=== PATIENT | male | born 1930 | race Caucasian/White ===

== ENCOUNTER 2017-07-21 14:21 | Inpatient (IN) | payer OTHER ==
[~2017-07-21] VITALS: Ht 190.5 cm; Wt 75.3 kg
[2017-07-21 14:25] VITALS: Ht 190.5 cm; Wt 75.3 kg
[2017-07-21 16:16] LABS: BASOPHIL % 0.1 % (0-2); PLATELET COUNT 193 x10^3mcL (130-400)
[2017-07-21 16:23] LABS: RED CELL DISTRIBUTION WIDTH 16.2 % (11.5-14.5)
[2017-07-21 16:29] LABS: CALCIUM 8.8 mg/dL (8.5-10.1); CHLORIDE SERUM 100 mmol/L (98-107); CREATININE SERUM 1.1 mg/dL (0.7-1.3); GLUCOSE SERUM 202 mg/dL (74-106); POTASSIUM SERUM 4.9 mmol/L (3.5-5.1); SODIUM SERUM 138 mmol/L (136-145)
[2017-07-21] MEDS ORDERED: PREMIERPRO RX5 MG/GM OP (16:31)
[2017-07-21] MEDS ORDERED: LEXAPRO20 MG PO (16:32)
[2017-07-21] MEDS ORDERED: FERROUS SULFAT325 M2 PO (16:32)
[2017-07-21] MEDS ORDERED: LEVEMIR100 U/M1 SC (16:32)
[2017-07-21] MEDS ORDERED: HUMALOG100 U/ML SC (16:32)
[2017-07-21] MEDS ORDERED: POLYETHYLENE GL1 PO1 PO (16:33)
[2017-07-21] MEDS ORDERED: MINOCYCLINE HYD50 MG PO (16:33)
[2017-07-21] MEDS ORDERED: SYN2 PO (16:33)
[2017-07-21] MEDS ORDERED: SPIRIVA18 MC1 INH (16:33)
[2017-07-21] MEDS ORDERED: LOSARTAN POTASS50 M1 PO (16:33)
[2017-07-21] MEDS ORDERED: PRILOSEC OTC20 M1 PO (16:33)
[2017-07-21 16:34] LABS: ALKALINE PHOSPHATASE 91 U/L (46-116); ALT/SGPT 24 U/L (16-63); AST/SGOT 17 U/L (15-37); BILIRUBIN TOTAL 0.3 mg/dL (0.20-1.00); TOTAL PROTEIN, SERUM 6.4 g/dL (6.4-8.2)
[2017-07-21] MEDS ORDERED: GLYCOTROL CAPS1 EACH PO (16:34)
[2017-07-21] MEDS ORDERED: TOVIAZ4 M1 PO (16:34)
[2017-07-21] MEDS ORDERED: TRAZODONE50 M1 PO (16:34)
[2017-07-21] MEDS ORDERED: COUMADIN5 MG PO (16:34)
[2017-07-21] MEDS ORDERED: AMOXICILLIN500 M1 PO (16:35)
[2017-07-21] MEDS ORDERED: ALBUTEROL SULFAT3 ML NEB (16:35)
[2017-07-21] MEDS ORDERED: FLOVENT DI100 MCG/A1 INH (16:35)
[2017-07-21] MEDS ORDERED: XIIDRA1 EACH OP (16:35)
[2017-07-21] MEDS ORDERED: PROAIR HFA8.5 GM IH (16:36)
[2017-07-21] MEDS ORDERED: [UNRECOGNIZED DRUG - CODE] PO (16:36)
[2017-07-21] MEDS ORDERED: MAPAP325 MG PO (16:36)
[2017-07-21] MEDS ORDERED: CLARITIN10 MG PO (16:36)
[2017-07-21] MEDS ORDERED: ASPIRIN325 MG PO (16:37)
[2017-07-21] MEDS ORDERED: [UNRECOGNIZED DRUG - OTHER] OU (16:37)
[2017-07-21] MEDS ORDERED: LIPI20 PO (16:37)
[2017-07-21] MEDS ORDERED: ACYCLOVIR800 MG PO (16:37)
[2017-07-21 16:38] LABS: ALBUMIN 2.9 g/dL (3.4-5.0)
[2017-07-21] MEDS ORDERED: COREG6.25 M1 PO (16:38)
[2017-07-21] MEDS ORDERED: PHOSLO667 MG PO (16:38)
[2017-07-21] MEDS ORDERED: COLACE100 MG PO (16:38)
[2017-07-21] MEDS ORDERED: CICLOPIROX6.6 ML TOP (16:38)
[2017-07-21] MEDS ORDERED: BREO ELLIPTA1 PO1 IH (16:38)
[2017-07-21 18:06] LABS: microscopic required? YES; urine erythrocyte NEGATIVE (NEGATIVE)
[2017-07-21 18:51] VITALS: BP 174/75
[2017-07-21 20:06] LABS: MAGNESIUM 1.6 mg/dL (1.8-2.4); PHOSPHOROUS 3.2 mg/dL (2.5-4.9)
[2017-07-21 20:08] LABS: CHOLESTEROL/HDL RATIO 2.7
[2017-07-21 20:10] LABS: T3 TOTAL 0.77 ng/mL
[2017-07-21 20:21] LABS: FREE T4 1.26 ng/dL (0.76-1.46); FREE THYROXINE INDEX 2.5 ug/dL (1.4-4.5); T4(THYROXINE) 6.3 ug/dL (4.7-13.3)
[2017-07-21 21:59] VITALS: BP 141/69
[2017-07-22 06:12] VITALS: BP 152/71
[2017-07-22 06:20] LABS: PLATELET COUNT 188 x10^3mcL (130-400)
[2017-07-22 06:39] LABS: BASOPHIL % 0 % (0-2); RED CELL DISTRIBUTION WIDTH 15.7 % (11.5-14.5)
[2017-07-22 07:38] LABS: CALCIUM 9.1 mg/dL (8.5-10.1); CARBON DIOXIDE 28.1 mmol/L (21-32); CHLORIDE SERUM 100 mmol/L (98-107); GLUCOSE SERUM 190 mg/dL (74-106); PHOSPHOROUS 3.1 mg/dL (2.5-4.9); POTASSIUM SERUM 4.9 mmol/L (3.5-5.1); SODIUM SERUM 133 mmol/L (136-145)
[2017-07-22 11:12] VITALS: BP 122/47
[2017-07-22 15:02] VITALS: BP 159/73
[2017-07-22 18:24] VITALS: BP 150/68
[2017-07-22 21:23] VITALS: BP 144/66
[2017-07-23 05:07] VITALS: BP 107/45
[2017-07-23 06:41] LABS: PLATELET COUNT 196 x10^3mcL (130-400)
[2017-07-23 06:45] LABS: CALCIUM 9.1 mg/dL (8.5-10.1); CARBON DIOXIDE 30.6 mmol/L (21-32); CHLORIDE SERUM 100 mmol/L (98-107); CREATININE SERUM 1.1 mg/dL (0.7-1.3); GLUCOSE SERUM 85 mg/dL (74-106); POTASSIUM SERUM 4.5 mmol/L (3.5-5.1); SODIUM SERUM 138 mmol/L (136-145)
[2017-07-23 07:24] LABS: BASOPHIL % 0 % (0-2); RED CELL DISTRIBUTION WIDTH 15.8 % (11.5-14.5)
[2017-07-23 08:44] VITALS: BP 110/53
[2017-07-23 12:55] VITALS: BP 143/69
[2017-07-23 17:10] VITALS: BP 145/68
[2017-07-23 21:10] VITALS: BP 148/65
[2017-07-24 04:57] VITALS: BP 114/49
[2017-07-24 06:43] LABS: PLATELET COUNT 208 x10^3mcL (130-400)
[2017-07-24 06:48] LABS: BASOPHIL % 0 % (0-2); RED CELL DISTRIBUTION WIDTH 15.4 % (11.5-14.5)
[2017-07-24 07:00] LABS: CALCIUM 8.8 mg/dL (8.5-10.1); CARBON DIOXIDE 27.3 mmol/L (21-32); CHLORIDE SERUM 101 mmol/L (98-107); CREATININE SERUM 1.1 mg/dL (0.7-1.3); GLUCOSE SERUM 165 mg/dL (74-106); PHOSPHOROUS 3.1 mg/dL (2.5-4.9); POTASSIUM SERUM 4.2 mmol/L (3.5-5.1); SODIUM SERUM 136 mmol/L (136-145)
[2017-07-24 08:53] VITALS: BP 170/83
[2017-07-24 13:49] VITALS: BP 164/84
[2017-07-24] MEDS ORDERED: LOSARTAN POTASS50 M1 PO (14:50)
[2017-07-24] MEDS ORDERED: COREG6.25 M1 PO (14:50)
[2017-07-24] MEDS ORDERED: LEVEMIR100 U/M1 SC ×2 (14:52→15:16)
[2017-07-24] MEDS ORDERED: MEDDP PO (15:05)
[2017-07-24] MEDS ORDERED: IPRATROPIUM BROM3 M2 HHN (15:08)
[2017-07-24] MEDS ORDERED: HUMULIN R100 U/1 M1 SC (15:14)
[2017-07-24 16:18] VITALS: BP 159/66
== END 2017-07-24 16:52 | DRG 205 ==
LOC: ED 14:21 → DU 17:40
PROVIDERS: Emergency Medicine; Family Medicine; Family Medicine Sports Medicine
DX: M94.0 Chondrocostal junction syndrome [Tietze] (principal); N17.0 Acute kidney failure with tubular necrosis; E44.0 Moderate protein-calorie malnutrition; E87.1 Hypo-osmolality and hyponatremia; J44.1 Chronic obstructive pulmonary disease with (acute) exacerbation; B02.30 Zoster ocular disease, unspecified; K21.9 Gastro-esophageal reflux disease without esophagitis; E11.65 Type 2 diabetes mellitus with hyperglycemia; E11.51 Type 2 diabetes mellitus with diabetic peripheral angiopathy without gangrene; G47.00 Insomnia, unspecified; H02.106 Unspecified ectropion of left eye, unspecified eyelid; D63.8 Anemia in other chronic diseases classified elsewhere; E03.9 Hypothyroidism, unspecified; F32.9 Major depressive disorder, single episode, unspecified; Z68.22 Body mass index [BMI] 22.0-22.9, adult; Z95.1 Presence of aortocoronary bypass graft; Z95.0 Presence of cardiac pacemaker; Z95.2 Presence of prosthetic heart valve; Z87.891 Personal history of nicotine dependence; Z79.4 Long term (current) use of insulin; Z79.01 Long term (current) use of anticoagulants; Z66 Do not resuscitate
CPT/HCPCS: 82962; 83880; 84439; 97110-GP; 97116-GP; 97530-GP; J1815; J1940; J2920; J2930; J3475; J7030; J7620; Q0092

== ENCOUNTER 2018-09-05 10:06 | Inpatient (IN) | payer OTHER ==
[~2018-09-05] VITALS: Ht 182.9 cm; Wt 81.6 kg
[~2018-09-05 10:06] MED LIST: ACYCLOVIR800 MG PO; ALBUTEROL SULFAT3 ML NEB; AMOXICILLIN500 M1 PO; ASPIRIN325 MG PO; BREO ELLIPTA1 PO1 IH; CICLOPIROX6.6 ML TOP; CLARITIN10 MG PO; COLACE100 MG PO; COREG6.25 M1 PO; COUMADIN5 MG PO; FERROUS SULFAT325 M2 PO; FLOVENT DI100 MCG/A1 INH; GLYCOTROL CAPS1 EACH PO; HUMALOG100 U/ML SC; HUMULIN R100 U/1 M1 SC; IPRATROPIUM BROM3 M2 HHN; LEVEMIR100 U/M1 SC; LEXAPRO20 MG PO; LIPI20 PO; LOSARTAN POTASS50 M1 PO; MAPAP325 MG PO; MEDDP PO; MINOCYCLINE HYD50 MG PO; PHOSLO667 MG PO; POLYETHYLENE GL1 PO1 PO; PREMIERPRO RX5 MG/GM OP; PRILOSEC OTC20 M1 PO; PROAIR HFA8.5 GM IH; SPIRIVA18 MC1 INH; SYN2 PO; TOVIAZ4 M1 PO; TRAZODONE50 M1 PO; XIIDRA1 EACH OP; [UNRECOGNIZED DRUG - CODE] PO; [UNRECOGNIZED DRUG - OTHER] OU
[2018-09-05 10:10] VITALS: Ht 182.9 cm; Wt 81.6 kg
[2018-09-05] MEDS ORDERED: TOVIAZ4 M1 PO ×2 (10:33→10:45)
[2018-09-05] MEDS ORDERED: COUMADIN3 MG PO (10:34)
[2018-09-05] MEDS ORDERED: NORCO1 TA2 (10:34)
[2018-09-05] MEDS ORDERED: ACYCLOVIR400 MG PO (10:35)
[2018-09-05] MEDS ORDERED: ADV250/50 INH (10:35)
[2018-09-05 10:39] LABS: microscopic required? NO
[2018-09-05] MEDS ORDERED: ALBUTEROL SULFAT3 ML NEB (10:40)
[2018-09-05] MEDS ORDERED: LIPI20 PO (10:41)
[2018-09-05] MEDS ORDERED: CARVEDILOL3.125 M1 PO (10:42)
[2018-09-05] MEDS ORDERED: LASIX40 MG PO (10:43)
[2018-09-05] MEDS ORDERED: ZOL100 PO (10:44)
[2018-09-05] MEDS ORDERED: SPIRIVA18 MC1 INH (10:45)
[2018-09-05] MEDS ORDERED: TRAZODONE50 M1 PO (10:45)
[2018-09-05 10:59] LABS: ALKALINE PHOSPHATASE 108 U/L (46-116); ALT/SGPT 25 U/L (16-63); AST/SGOT 29 U/L (15-37); BILIRUBIN TOTAL 0.62 mg/dL (0.20-1.00); CALCIUM 9.3 mg/dL (8.5-10.1); CHLORIDE SERUM 97 mmol/L (98-107); CREATININE SERUM 1.6 mg/dL (0.7-1.3); GLUCOSE SERUM 105 mg/dL (74-106); POTASSIUM SERUM 3.9 mmol/L (3.5-5.1); SODIUM SERUM 136 mmol/L (136-145); TOTAL PROTEIN, SERUM 7.5 g/dL (6.4-8.2)
[2018-09-05 11:11] LABS: ALBUMIN 2.3 g/dL (3.4-5.0)
[2018-09-05 11:25] LABS: urine erythrocyte NEGATIVE (NEGATIVE)
[2018-09-05 11:44] LABS: PLATELET COUNT 288 x10^3mcL (130-400); RED CELL DISTRIBUTION WIDTH 14.5 % (11.5-14.5)
[2018-09-05 12:08] LABS: BAND NEUTROPHIL 4 % (0-10); BASOPHIL 0 % (0-2); MONOCYTE 9 % (0-7); SEGMENTED NEUTROPHILS 87 % (37-75)
[2018-09-05 12:09] LABS: PLATELET MORPHOLOGY PLATELETS NORMAL; rbc morphology (normal/abnorm) ABNORMAL (NORMAL)
[2018-09-05 13:25] LABS: MAGNESIUM 1.9 mg/dL (1.8-2.4); PHOSPHOROUS 4.6 mg/dL (2.5-4.9)
[2018-09-05 13:26] LABS: CHOLESTEROL/HDL RATIO 2.8
[2018-09-05 13:31] LABS: FREE T4 1.14 ng/dL (0.76-1.46)
[2018-09-05 13:32] LABS: FREE THYROXINE INDEX 1.7 ug/dL (1.4-4.5); T4(THYROXINE) 4.1 ug/dL (4.7-13.3)
[2018-09-05 13:53] LABS: T3 TOTAL 0.29 ng/mL
[2018-09-05 15:11] VITALS: BP 131/49
[2018-09-05 16:29] VITALS: BP 112/46; BP 131/49
[2018-09-05 21:06] VITALS: BP 108/46
[2018-09-06 05:59] VITALS: BP 147/52
[2018-09-06 06:30] LABS: BASOPHIL % 0.1 % (0-2); PLATELET COUNT 238 x10^3mcL (130-400)
[2018-09-06 06:33] LABS: CARBON DIOXIDE 32.9 mmol/L (21-32); CHLORIDE SERUM 100 mmol/L (98-107); CREATININE SERUM 1.5 mg/dL (0.7-1.3); GLUCOSE SERUM 172 mg/dL (74-106); POTASSIUM SERUM 4.7 mmol/L (3.5-5.1); SODIUM SERUM 139 mmol/L (136-145)
[2018-09-06 06:43] LABS: RED CELL DISTRIBUTION WIDTH 14.8 % (11.5-14.5)
[2018-09-06 10:08] VITALS: BP 120/48
[2018-09-06 13:04] VITALS: BP 129/63
[2018-09-06 16:33] VITALS: BP 103/48
[2018-09-06 20:51] VITALS: BP 126/58
[2018-09-07 05:36] VITALS: BP 125/53
[2018-09-07 06:16] LABS: PLATELET COUNT 242 x10^3mcL (130-400)
[2018-09-07 06:18] LABS: CALCIUM 9.1 mg/dL (8.5-10.1); CARBON DIOXIDE 32.2 mmol/L (21-32); CHLORIDE SERUM 102 mmol/L (98-107); CREATININE SERUM 1.4 mg/dL (0.7-1.3); GLUCOSE SERUM 183 mg/dL (74-106); POTASSIUM SERUM 4.5 mmol/L (3.5-5.1); SODIUM SERUM 140 mmol/L (136-145)
[2018-09-07 06:26] LABS: BASOPHIL % 0 % (0-2); RED CELL DISTRIBUTION WIDTH 14.6 % (11.5-14.5)
[2018-09-07 09:35] VITALS: BP 139/58
[2018-09-07 12:26] VITALS: BP 101/74
[2018-09-07 17:24] VITALS: BP 136/65
[2018-09-07 21:04] VITALS: BP 131/55
[2018-09-08 05:45] VITALS: BP 136/61
[2018-09-08 07:21] LABS: BASOPHIL % 0.3 % (0-2); PLATELET COUNT 254 x10^3mcL (130-400)
[2018-09-08 07:28] LABS: CALCIUM 8.7 mg/dL (8.5-10.1); CARBON DIOXIDE 30.3 mmol/L (21-32); CHLORIDE SERUM 102 mmol/L (98-107); CREATININE SERUM 1.2 mg/dL (0.7-1.3); GLUCOSE SERUM 151 mg/dL (74-106); POTASSIUM SERUM 3.8 mmol/L (3.5-5.1); SODIUM SERUM 140 mmol/L (136-145)
[2018-09-08 07:50] LABS: RED CELL DISTRIBUTION WIDTH 15.1 % (11.5-14.5)
[2018-09-08 09:46] VITALS: BP 124/57
[2018-09-08 12:23] VITALS: BP 110/46
[2018-09-08 15:58] VITALS: BP 110/46
[2018-09-08 17:21] VITALS: BP 118/53
[2018-09-08 20:45] VITALS: BP 138/65
[2018-09-09 05:49] VITALS: BP 120/54
[2018-09-09 06:52] LABS: CALCIUM 8.6 mg/dL (8.5-10.1); CARBON DIOXIDE 29.3 mmol/L (21-32); CHLORIDE SERUM 100 mmol/L (98-107); CREATININE SERUM 1.4 mg/dL (0.7-1.3); GLUCOSE SERUM 191 mg/dL (74-106); POTASSIUM SERUM 3.7 mmol/L (3.5-5.1); SODIUM SERUM 137 mmol/L (136-145)
[2018-09-09 07:04] LABS: PLATELET COUNT 232 x10^3mcL (130-400); RED CELL DISTRIBUTION WIDTH 14.3 % (11.5-14.5)
[2018-09-09 07:16] VITALS: BP 121/57
[2018-09-09 07:23] LABS: BASOPHIL % 0 % (0-2)
[2018-09-09 12:17] VITALS: BP 127/58
[2018-09-09 16:07] VITALS: BP 124/55
[2018-09-09 20:13] VITALS: BP 137/53
[2018-09-10 05:59] VITALS: BP 106/55
[2018-09-10 06:33] LABS: BASOPHIL % 0.1 % (0-2); PLATELET COUNT 195 x10^3mcL (130-400)
[2018-09-10 06:41] LABS: CARBON DIOXIDE 26.9 mmol/L (21-32); CHLORIDE SERUM 101 mmol/L (98-107); CREATININE SERUM 1.3 mg/dL (0.7-1.3); GLUCOSE SERUM 156 mg/dL (74-106); POTASSIUM SERUM 3.2 mmol/L (3.5-5.1); SODIUM SERUM 138 mmol/L (136-145)
[2018-09-10 06:58] VITALS: BP 126/60
[2018-09-10 07:26] LABS: RED CELL DISTRIBUTION WIDTH 14.9 % (11.5-14.5)
[2018-09-10 10:45] VITALS: BP 128/61
[2018-09-10 16:13] VITALS: BP 128/57
[2018-09-10 21:01] VITALS: BP 132/72
[2018-09-11 05:41] VITALS: BP 142/64
[2018-09-11 06:37] LABS: PLATELET COUNT 232 x10^3mcL (130-400); RED CELL DISTRIBUTION WIDTH 14.2 % (11.5-14.5)
[2018-09-11 07:10] VITALS: BP 131/57
[2018-09-11 07:25] LABS: CALCIUM 8.9 mg/dL (8.5-10.1); CARBON DIOXIDE 28.4 mmol/L (21-32); CHLORIDE SERUM 102 mmol/L (98-107); CREATININE SERUM 1.4 mg/dL (0.7-1.3); GLUCOSE SERUM 129 mg/dL (74-106); POTASSIUM SERUM 3.9 mmol/L (3.5-5.1); SODIUM SERUM 140 mmol/L (136-145)
[2018-09-11 11:58] VITALS: BP 139/61
[2018-09-11 12:37] LABS: BAND NEUTROPHIL 3 % (0-10); MONOCYTE 5 % (0-7); SEGMENTED NEUTROPHILS 86 % (37-75); rbc morphology (normal/abnorm) NORMAL (NORMAL)
[2018-09-11 12:38] LABS: PLATELET MORPHOLOGY PLATELETS NORMAL
[2018-09-11 15:44] VITALS: BP 111/55
[2018-09-11 21:04] VITALS: BP 128/55
[2018-09-12 05:57] VITALS: BP 139/64
[2018-09-12 06:47] LABS: PLATELET COUNT 230 x10^3mcL (130-400)
[2018-09-12 06:53] LABS: CALCIUM 8.6 mg/dL (8.5-10.1); CHLORIDE SERUM 103 mmol/L (98-107); CREATININE SERUM 1.5 mg/dL (0.7-1.3); GLUCOSE SERUM 144 mg/dL (74-106); POTASSIUM SERUM 3.1 mmol/L (3.5-5.1); SODIUM SERUM 140 mmol/L (136-145)
[2018-09-12 07:02] LABS: BASOPHIL % 0 % (0-2); RED CELL DISTRIBUTION WIDTH 14.8 % (11.5-14.5)
[2018-09-12 09:01] VITALS: BP 139/58
[2018-09-12 12:36] VITALS: BP 125/54
[2018-09-12 17:22] VITALS: BP 120/60
[2018-09-12 20:19] VITALS: BP 129/60
[2018-09-13 05:13] VITALS: BP 111/46
[2018-09-13 06:37] LABS: BASOPHIL % 0.1 % (0-2); PLATELET COUNT 215 x10^3mcL (130-400); RED CELL DISTRIBUTION WIDTH 14.4 % (11.5-14.5)
[2018-09-13 06:44] LABS: CALCIUM 8.5 mg/dL (8.5-10.1); CHLORIDE SERUM 107 mmol/L (98-107); CREATININE SERUM 1.7 mg/dL (0.7-1.3); GLUCOSE SERUM 113 mg/dL (74-106); MAGNESIUM 1.1 mg/dL (1.8-2.4); SODIUM SERUM 143 mmol/L (136-145)
[2018-09-13 06:49] LABS: POTASSIUM SERUM 2.9 mmol/L (3.5-5.1)
[2018-09-13 09:00] VITALS: BP 146/49
[2018-09-13 10:27] VITALS: BP 146/49
[2018-09-13] MEDS ORDERED: MERREM IV1 GM INJ (10:37)
[2018-09-13 13:23] VITALS: BP 151/64
[2018-09-13 17:16] VITALS: BP 138/67
[2018-09-13 17:29] VITALS: BP 138/67
== END 2018-09-13 19:14 | DRG 177 ==
LOC: ED 10:06 → DU 12:25
PROVIDERS: Emergency Medicine; Family Medicine; Internal Medicine; ADMIT Internal Medicine
DX: J69.0 Pneumonitis due to inhalation of food and vomit (principal); J96.01 Acute respiratory failure with hypoxia; N17.0 Acute kidney failure with tubular necrosis; E44.0 Moderate protein-calorie malnutrition; B02.30 Zoster ocular disease, unspecified; J44.1 Chronic obstructive pulmonary disease with (acute) exacerbation; E11.42 Type 2 diabetes mellitus with diabetic polyneuropathy; L85.3 Xerosis cutis; E86.0 Dehydration; I12.9 Hypertensive chronic kidney disease with stage 1 through stage 4 chronic kidney disease, or unspecified chronic kidney disease; E11.22 Type 2 diabetes mellitus with diabetic chronic kidney disease; E11.65 Type 2 diabetes mellitus with hyperglycemia; N18.9 Chronic kidney disease, unspecified; E03.9 Hypothyroidism, unspecified; H02.104 Unspecified ectropion of left upper eyelid; F32.9 Major depressive disorder, single episode, unspecified; Z91.81 History of falling; Z95.0 Presence of cardiac pacemaker; Z86.11 Personal history of tuberculosis; Z79.4 Long term (current) use of insulin; Z95.2 Presence of prosthetic heart valve; Z68.24 Body mass index [BMI] 24.0-24.9, adult; Z95.1 Presence of aortocoronary bypass graft; Z87.891 Personal history of nicotine dependence
CPT/HCPCS: 36600; 82962; 83880; 84439; 92526-GN; 92610; 94150; 97110-GP; 97116-GP; 97530-GP; J1815; J1956; J2543; J3370; J3480; J7030; J7060; J7613; J7620; J7644; Q0092

== ENCOUNTER 2018-09-29 13:50 | Inpatient (IN) | payer OTHER ==
[~2018-09-29] VITALS: Ht 182.9 cm; Wt 66.2 kg
[~2018-09-29 13:50] MED LIST changes: +ACYCLOVIR400 MG PO; +ADV250/50 INH; +CARVEDILOL3.125 M1 PO; +COUMADIN3 MG PO; +LASIX40 MG PO; +MERREM IV1 GM INJ; +NORCO1 TA2; +ZOL100 PO
[2018-09-29 13:59] VITALS: Ht 182.9 cm; Wt 66.2 kg
--- NOTE | 2018-09-29 14:10 | NUR ---
PT BIB [facility] FOR SOB WHILE RESID[facility] DUE TO PNA. PT WAS RECENTLY DISCHARGED [place] INPATIENT STATUS [place] [facility] [place] HAS PRODUCTIVE CONGESTED COUGH NO RESP DISTRESS WITH HX OF COPD. PT ARRIVED ON HIGH FLOW O2 AT 15L, PT PLACED ON FULL CM PACED RHYTHM GOWNED IN POSITION OF COMFORT SITTING UPRIGHT. IV ESTABLISHED TO RAC 20G SALINE LOCK PATENT FLUSHED WITH NO PROBLEM EKG IN PROGRESS.
--- NOTE | 2018-09-29 14:40 | NUR ---
MSE COMPLETED BY DR STEELE
--- NOTE | 2018-09-29 14:46 | NUR ---
PTS O2 SET TO 4L VIA NC AT THIS TIME PER DR STEELE'S ORDERS. PT IN NO DISTRESS DAUGHTER AT BEDSIDE VSS AT THIS TIME. IVF INFUSION STARTED INFLUENZA A&B COLLECTED AND SENT TO LAB
--- NOTE | 2018-09-29 15:22 | NUR ---
SMALL SIP OF NECTAR THICK WATER PROVIDED FOR PT OK PER DR STEELE. PT SWALLOWED WITH NO PROBLEM.
[2018-09-29 15:30] LABS: BASOPHIL % 0.1 % (0-2); PLATELET COUNT 229 x10^3mcL (130-400)
[2018-09-29 15:31] LABS: RED CELL DISTRIBUTION WIDTH 15.8 % (11.5-14.5)
[2018-09-29 15:46] LABS: ALKALINE PHOSPHATASE 116 U/L (46-116); ALT/SGPT 21 U/L (16-63); AST/SGOT 25 U/L (15-37); BILIRUBIN TOTAL 0.28 mg/dL (0.20-1.00); CALCIUM 8.6 mg/dL (8.5-10.1); CHLORIDE SERUM 100 mmol/L (98-107); CREATININE SERUM 1.4 mg/dL (0.7-1.3); POTASSIUM SERUM 3.2 mmol/L (3.5-5.1); SODIUM SERUM 138 mmol/L (136-145); TOTAL PROTEIN, SERUM 6.8 g/dL (6.4-8.2)
[2018-09-29 15:58] LABS: GLUCOSE SERUM 312 mg/dL (74-106)
[2018-09-29 16:01] LABS: ALBUMIN 1.6 g/dL (3.4-5.0); CHOLESTEROL 78 mg/dL (<200); HDL CHOLESTEROL 26 mg/dL (40-60)
--- NOTE | 2018-09-29 16:07 | NUR ---
PT RESTING COMFORTABLY DAUGHTER AT BEDSIDE PT AAOX3 NO CHANGES IN NEURO STATUS NO RESP DISTRESS. IVF INFUSING WITH NO PROBLEM. WILL CONTINUE TO MONITOR
--- NOTE | 2018-09-29 16:26 | NUR ---
PT HAD SOILED DIAPER WITH URINE AND FECES. PT REPORTED HE HAD BOWEL MOVEMENT. DENIS CARE PROVIDED NEW DIAPER APPLIED. IT WAS NOTED PT HAS REDNESS TO BUTTOCK AREA WITH SMALL SKIN BREAKDOWN
--- NOTE | 2018-09-29 16:50 | NUR ---
REPORT GIVEN TO KELLEE RN RESUMING CARE OF PT IN TELE FLOOR
--- NOTE | 2018-09-29 16:58 | NUR ---
RT AT BEDSIDE FOR BREATHING TX
[2018-09-29] MEDS ORDERED: ADV250/50 INH (17:01)
[2018-09-29] MEDS ORDERED: ACYCLOVIR400 MG PO (17:01)
[2018-09-29] MEDS ORDERED: CARVEDILOL3.125 M1 PO (17:02)
[2018-09-29] MEDS ORDERED: LIPI20 PO (17:02)
[2018-09-29] MEDS ORDERED: ALBUTEROL SULFAT0.51 NEB (17:02)
[2018-09-29] MEDS ORDERED: COUMADIN2 MG PO (17:02)
[2018-09-29] MEDS ORDERED: INS5050 SC (17:03)
[2018-09-29] MEDS ORDERED: LASIX40 MG PO (17:03)
[2018-09-29] MEDS ORDERED: LANTUS SOLOS100 U/M1 SQ (17:03)
[2018-09-29] MEDS ORDERED: ZOLOFT100 MG PO (17:03)
[2018-09-29] MEDS ORDERED: SPIRIVA18 MC1 INH (17:04)
--- NOTE | 2018-09-29 17:10 | NUR ---
PT TO TELE FLOOR VIA NATHANIEL NO DISTRESS VSS IV SITE PATENT. IVF INFUSING WITH NO PROBLEM SURU RN RESUMING INFUSION IN TELE FLOOR. BREATHING TX IN PROGRESS RT TECH ACCOMPANYING PT. ALL BELONGINGS COLLECTED BY DAUGHTER. DAUGHTER ACCOMPANYING PT TO TELE FLOOR.
[2018-09-29 17:35] LABS: CHOLESTEROL/HDL RATIO 3.3; MAGNESIUM 1.3 mg/dL (1.8-2.4); PHOSPHOROUS 3.3 mg/dL (2.5-4.9)
[2018-09-29 17:42] VITALS: BP 128/48
--- NOTE | 2018-09-29 17:50 | NUR ---
RECEIVED PT FROM ED VIA TEODORA. ORIENTED PT TO ROOM AND SURROUNDINGS. IV NOTED TO RAC PATENT AND INTACT. TELE 14 PLACED ON PT READING PACED. INSTRUCTED PT ON THE USE OF CALL LIGHT FOR ASSISTANCE. ENDORSED PT TO PRIMARY NURSE JIN
--- NOTE | 2018-09-29 18:56 | NUR ---
INSERTED CABAN CATHETER AT PTS REQUEST. 16FR TOLERATED WELL. DRAINING OUT CLOUDY YELLOW URINE. GAVE SIPS OF THICKENED LIQUID.
--- NOTE | 2018-09-29 19:00 | NUR ---
RECEIVED PT LAYING IN BED, NO ACUTE DISTRESS OBSERVED. PT DENIES PAIN OR DISCOMFORT AT THIS TIME. BREATHING ON 3LNC, EVEN AND UNLABORED, DENIES SOB OR DYSPNEA, LUNG SOUNDS CONGESTED, PRODUCTIVE COUGH NOTED, O2 SAT 95% AA/OX2, ABLE TO MAKE NEEDS KNOWN, SPEECH SLOW AND APPROPRIATE. 100% PACED TO TELE #14, PACEMAKER TO L UPPER CHEST, DENIES CP. WEAK PEDAL PULSES, NO EDEMA NOTED. ABD ROUND AND SOFT WITH ACTIVE BOWEL SOUNDS, DENIES N/V/D. CABAN CATH IN PLACE DRAINING YELLOW URINE TO GRAVITY. AMBULATORY WITH WALKER AT BASELINE, ABLE TO TURN AND REPOSITION SELF IN BED, AIR MATTRESS IN PLACE. ERYTHEMA NOTED TO PERINEAL AREA, SUPERVISOR LEAD BURNING. BLANCHABLE ERYTHEMA TO SACCRO-COCCYX AREA WITH SMALL OPEN WOUNDS, OPTIFOAM IN PLACE, CDI. DARK DISCOLORATION AND SCATTERED ECCHYMOSIS WITH DRY SKIN TO BUE. SKIN TEAR TO LUE, KRANTHI. DARK DISCOLORATION AND DRY SKIN TO BLE. DRY SCABS TO LATERAL AND MEDIAL ASPECTS OF BOTH FEET, KRANTHI. IV TO RAC IN PLACE, DRY, PATENT, INTACT, AND INFUSING IVF WELL. NO PAIN, REDNESS, OR SWELLING NOTED. COMFORT AND SAFETY MEASURES IN PLACE. BED IN LOWEST POSITION WITH SIDE RAILS UP X2 AND BED ALARM ACTIVATED. CALL LIGHT WITHIN REACH. WILL CONTINUE TO MONITOR
--- NOTE | 2018-09-29 19:55 | NUR ---
PT'S , HARMONY, CALLED AND WANTED TO SPEAK WITH PT. PT ON PHONE WITH HER AT THIS TIME.
[2018-09-29 21:08] VITALS: BP 120/49
--- NOTE | 2018-09-29 21:19 | NUR ---
DR. ZAMORANO MADE AWARE PT IS DIABETIC WITH SCHEDULED LANTUS TONIGHT BUT NO ACCUCHECK ORDERED. WILL ANTICIPATE NEW ORDERS
--- NOTE | 2018-09-29 21:40 | NUR ---
ORDERED LANTUS HELD DUE TO PT NPO AND PENDING SWALLOW EVAL. DR. ZAMORANO MADE AWARE
[2018-09-30 02:33] LABS: microscopic required? YES; urine erythrocyte 3+ (NEGATIVE)
--- NOTE | 2018-09-30 06:10 | NUR ---
NO SIGNIFICANT CHANGES TO REPORT, PT COMPLIED WITH NURSING CARE THROUGHOUT THE SHIFT WITH NO ACUTE EVENTS OVERNIGHT. PT LAYING IN BED AT THIS TIME, EASILY AROUSABLE TO VERBAL STIMULI, NO ACUTE DISTRESS OBSERVED. COMFORT AND SAFETY MEASURES MAINTAINED. ALL NEEDS ASSESSED AND ATTENDED TO. CALL LIGHT WITHIN REACH. WILL CONTINUE TO MONITOR
[2018-09-30 06:25] VITALS: BP 121/44
[2018-09-30 06:29] LABS: BASOPHIL % 0.2 % (0-2); PLATELET COUNT 213 x10^3mcL (130-400)
[2018-09-30 06:40] LABS: CALCIUM 8.5 mg/dL (8.5-10.1); CARBON DIOXIDE 30.9 mmol/L (21-32); CHLORIDE SERUM 104 mmol/L (98-107); CREATININE SERUM 1.3 mg/dL (0.7-1.3); GLUCOSE SERUM 325 mg/dL (74-106); MAGNESIUM 1.8 mg/dL (1.8-2.4); POTASSIUM SERUM 4.2 mmol/L (3.5-5.1); SODIUM SERUM 143 mmol/L (136-145)
--- NOTE | 2018-09-30 07:15 | NUR ---
RECEIVED BEDSIDE REPORT FROM OUTGOING INSPECTOR NURSE AT THIS TIME. PATIENT RESTING COMFORTABLY IN BED. NO APPARENT DISTRESS OR DISCOMFORT NOTED. BREATHING EVEN AND UNLABORED. NO RESPIRATORY DISTRESS NOTED. [address] AND PATIENT TOLERATING WELL. NO INDICATION OF CHEST PAIN AT THIS TIME. PACEMAKER NOTED TO LEFT UPPER CHEST WALL. DRESSING TO SACRAL/COCCYX CDI. IV PATENT AND INTACT. ALL QUESTIONS AND CONCERNS ADDRESSED. ALL NEEDS ATTENDED TO. WILL CONTINUE TO MONITOR
[2018-09-30 09:26] VITALS: BP 117/48
--- NOTE | 2018-09-30 11:00 | NUR ---
MORNING MEDICATIONS ADMINISTERED. PATIENT TOLERATED WELL. NO ADVERSE EFFECTS NOTED. NO APPARENT DISTRSES OR DISCOMFORT NOTED ALL NEEDS ATTENDED TO. WILL CONTINUE TO MONITOR
--- NOTE | 2018-09-30 11:30 | NUR ---
PATIENT BLOOD SUGAR 310 AT THIS TIME. PATIENT NPO. SPOKE TO DR RAMACHANDRAN REGARDING INSULIN COVERAGE DUE TO PATIENT BEING NPO AT THIS TIME. PER DR DUARTE KNIGHT TO GIVE 12 UNITS OF INSULIN AND FLUIDS TO BE CHANGED TO D5 NS. WILL PROCEED ORDERED. WILL CONTINUE TO MONITOR PATIENT
[2018-09-30 12:45] VITALS: BP 119/63
--- NOTE | 2018-09-30 13:17 | NUR ---
1. Recommend CCHO diet when medically appropriate/tolerated and if RN DISCHARGE eval is in agreement with consistency.
--- NOTE | 2018-09-30 13:17 | NUR ---
Initial Nutrition Assessment- 217T/A RY SUN HR IA Dx: PNA, COPD PMHx: HTN, DM, COPD, TB, Chronic Left sided Zoster Ophalmicus, CKD, Chronic Anemia, CHF and afib PSHx: CABG, pacemaker and defibrillator placement, Labs: (09/30) BG 325H, BUN 40H, A1C 9.6H Meds: Coreg, D50, Humulin, lantus, Lasix, Lipitor, zofran Diet: NPO (until swallow eval is done) PO Intake: none Ht: 182.88 cm (72") Wt: 66.2 kg (146#) BMI: 19.8 KG/M2 IBW: 178# (81 KG) %IBW: 82 UBW: unable to access Age: 88/M Food Allergies: NKFA Skin: bala errythmea to coccyx with small wounds, multiple wounds to RT and LT foot Rick: 14 Edema: none GI: last BM: 09/29 Per H&P, Pt is 88 yo M with PMH of HTN, DM, COPD, TB, Chronic Left sided Zoster Ophalmicus, CKD, Chronic Anemia, CHF and afib was admitted from [facility] with cc of 1 day of worsening SOB associate with productive cough with yellow sputum. FSN received wound care consult on 09/29 for "multiple wound". RDN visit: pt was awake and said that he does not have any N/V at this time and is waiting for food since he is hungry. NPO diet order was placed later this morning. Problem with: N: no V: no D: no C: no Problems with: Chewing/Swallowing: awaiting swallow eval Current appetite: good Recent wt change: unable to access Vitamin/Supplement use: pt said he does consume but does not remember names. Special diet at home: regular Physical activity: geriatric pt Education: No diet education provided at this time. Diet education handouts will be given during follow up visit. Estimated Nutritional Needs Based on actual body weight 66 kg Energy: 2432-5039 kcal/d (25-30 kcal/kg- geriatric maintenance) Protein: 66- 79g/d (1.0-1.2 g/kg)- geriatric maintenance and preservation of lean body mass Fluid: 8521-4922 ml/d (1 ml/kcal-fluid balance) or per doctor Nutrition Diagnosis 1. Altered nutrition related lab values related to endocrine dysfunction as evidenced by BG 325, A1C 9.6 2. Inadequate oral intake related to medical condition as evidenced by NPO order. Intervention 1. Recommend CCHO diet when medically appropriate/tolerated and if REGISTRATION SPECIALIST eval is in agreement with consistency. Monitor/Evaluate Goal: PO intake at least 75% of estimated needs Monitor: PO intake, Labs, GI function F/U in 3-5 days as moderate risk 10/03-10/05
--- NOTE | 2018-09-30 15:12 | NUR ---
PTW SEEN FOR DYSPHAGIA. PT WAS GIVEN TRIALS OF PUREE ANND HONEY THICK LIQUID. PT HAD ASPIRATION FOR ALL THE CONSISTENCY. RECOMMENDATION ALTERNATE MODE OF FEEDING.
--- NOTE | 2018-09-30 15:24 | NUR ---
WOUND CARE EVALUATION NOTE: REASON FOR EVALUATION: MULTIPLE WOUNDS SKIN ASSESSMENT DONE WITH THIS 88 Y/O MALE ADMITTED TO [facility] [place] WITH [place]ITIAL DX: SOB X1 DAY. PT. 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 BILATERAL UPPER EXTREMITIES MULTIPLE ECCHYMOSIS. BILATERAL LOWER EXTREMITIES XEROTIC SKIN WITH DARK PIGMENTATION, DORSAL PEDAL PULSES PRESENT, CAPILLARY REFILLED < 3 SEC. X 10 TOES. INCONTINENT OF BOWEL, F/C PANTENT WITH HEMATURIA OBSERVED, PLAN OF CARE DISCUSS WITH PRIMARY RN AND PT. PT. VERBALIZES UNDERSTANDING, NEED REINFORCEMENT. 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 -INCOTINENT ASSOCIATE DERMATITIS (IAD) TO: SCROTAL AREA, B/L GROINS EXTENDED TO PERINEUM, R/L INNER BUTTOCKS AND POSTERIOR L/R THIGHS -INCOTINENT ASSOCIATE DERMATITIS (IAD) TO: SACRALCOCCYX SURROUNDING SKIN TO R/L BUTTOCKS WITH SCATTERED SKIN EROSIONS, MOIST WITH REDNESS -UN-STAGEABLE PRESSURE ULCER BLACK ESCHAR TISSUE RIGHT LATERAL FOOT MULTIPLE BLACK ESCHAR TISSUE [id number] AND SMALLEST 2.5X1.5 CM DEPTH UTD -UN-STAGEABLE PRESSURE ULCER BLACK ESCHAR TISSUE RIGHT FIRST METATARSAL 3X3CM, DEPTH UTD -UN-STAGEABLE PRESSURE ULCER DARK BROWN TISSUE RIGHT HEEL 2X3 CM DEPTH UTD -UN-STAGEABLE PRESSURE ULCER BLACK ESCHAR TISSUE LEFT FIRST METATARSAL 1.5X2CM, DEPTH UTD -UN-STAGEABLE PRESSURE ULCER BLACK ESCHARTISSUE LEFT 5TH METATARSAL 2X1.5CM, DEPTH UTD -PRESSURE ULCER STAGE 1 TO LEFT HEEL NON-BLANCHABLE SKIN INTACT RECOMMENDATIONS: -PODIATRY CONSULT -APPLY HYDRAGUARD TO BLE AND LEFT HEEL BID -PAINT LEFT UPPER ARMS DRY SKIN TEAR WITH BETADINE SOLUTION BID AND LEAVE IT OPEN TO AIR DRY -CLEANSE RIGHT AND LEFT FEET MULTIPL PRESSURE ULCER ASMITA NECROTIC TISSUE WITH NS. APPLY SOAKED 2X2 BETADINE SOLUTION WRAP WITH KERLIX ROLLS AND SECURED WITH TAPE QD AND PRN IF SOILING. -CLEANSE SACRALCOCCYX, R/L BUTTOCKS, GROINS, SCROTAL AND POSTERIOR THIGHS WITH SOAP AND WATER, PAT DRY, APPLY Z GUARD BID AND PRN IF SOILING -APPLY OPTIFOAM TO SACRALCOCCYX QD AND PRN IF SOILING -OFFLOAD BILATERAL HEELS BY PLACING PILLOWS UNDER CALVES UNLESS OTHERWISE CONTRAINDICATED -HEEL RAISERS TO BILATERAL HEELS -PRESSURE REDISTRIBUTION SURFACE THERAPY -TURN AND REPOSITION Q2H, OFFLOAD SACRALCOCCYX BY TURNING RIGHT AND LEFT -MONITOR SKIN CONDITION EACH TIME PT IS REPOSITIONS -CONTINUE TO FOLLOW RD RECOMMENDATIONS RECOMMENDATIONS DISCUSSED WITH PRIMARY RN PLEASE CONTACT WOUND CARE NURSE FOR ANY QUESTIONS AND CHANGES IN SKIN CONDITION.
--- NOTE | 2018-09-30 16:30 | NUR ---
PATIENT BLOOD SUGAR 88 AT THIS TIME. NO INSULIN COVERAGE REQUIRED. DAUGHTER HANG AT BEDSIDE. ALL QUESTIONS AND CONCERNS ADDRESSED. ALL NEEDS ATTENDED TO. WILL CONTINUE TO MONITOR
[2018-09-30 17:54] VITALS: BP 117/51
--- NOTE | 2018-09-30 19:00 | NUR ---
PT RECIEVED FROM THE DAY SHIFT RN. PT IS ALERT AND ORIENTED X3, PT IS CALM AND COOPERATIVE WITH NURSING CARE, IV INFUSING AND INTACT. NO SOB NOTED AT THIS TIME. PT DENIES PAIN. SAFETY AND COMFORT MEASURES MAINTAINED, BED IN LOWEST POSITION, CALL LIGHT WITHIN REACH, OPTIFOAM AND BLE DRESSINGS CDI. WILL CONTINUE TO MONITOR AT THIS TIME.
--- NOTE | 2018-09-30 19:32 | NUR ---
PATIENT RESTING COMFORTABLY IN BED AT THIS TIME. NO APPARENT DISTRESS OR DISCOMFORT NOTED. 3L NC IN PLACE. PATIENT TOLERATING WELL. CABAN CATHETER IN PLACE DRAINING TO GRAVITY. IV PATENT AND INTACT. ALL QUESTIONS AND CONCERNS ADDRESSED. SAFETY PRECAUTIONS MAINTAINED. ALL NEEDS ATTENDED TO. ENDORSED ALL CARE TO EHS ENGINEER NURSE
[2018-09-30 21:10] VITALS: BP 112/45
--- NOTE | 2018-09-30 22:01 | NUR ---
PT COMPLAINING OF BILATERAL FOOT PAIN. PT STATES PAIN IS SHARP AND IS A 7/10 PAIN. WILL MEDICATE WITH PRN PAIN MEDICATION.
--- NOTE | 2018-09-30 22:07 | NUR ---
IVP MORPHINE 1MG GIVEN.
--- NOTE | 2018-10-01 | NUR ---
RADIOLOGY CALLED WITH CRITICAL RESULTS OF U/S OF BILATERAL LOWER EXTREMITIES. RESULTS READ TO DR ZAMORANO. DR ZAMORANO MADE AWARE. WILL CONTINUE TO MONITOR AT THIS TIME.
--- NOTE | 2018-10-01 02:37 | NUR ---
PT COMPLAINS OF BILATERAL LEG PAIN. PT STATES IT IS A 5/10 PAIN BUT IS SHARP AND ACHING. PT GIVEN PRN MORPHINE. WILL CONTINUE TO MONITOR.
--- NOTE | 2018-10-01 05:02 | NUR ---
PT SLEPT IN VERY SHORT INTERVALS THROUGHOUT THE SHIFT. PT WAS ALERT AND ORIENTED X3, NO ACUTE DISTRESS WAS NOTED. PT HAS NO COMPLAINT OF PAIN AT THIS TIME. PT HAS BEEN CALM AND COOPERATIVE WITH CARE. CABAN CATHETER IN PLACE DRAINING RED URINE. NO ODOR NOTED. SAFETY AND COMFORT MEASURES MAINTAINED, BED IN LOWEST POSITION, CALL LIGHT WITHIN REACH, WILL ENDORSE CONTNIUITY OF CARE TO THE ONCOMING RN.
[2018-10-01 06:01] VITALS: BP 105/53
[2018-10-01 06:37] LABS: BASOPHIL % 0.2 % (0-2); PLATELET COUNT 208 x10^3mcL (130-400)
--- NOTE | 2018-10-01 06:37 | NUR ---
PT BLOOD SUGAR IS 243, DR RAMACHANDRAN MADE AWARE, PT IS NPO, PER DR RAMACHANDRAN NO INSULIN COVERAGE AT THIS TIME.
[2018-10-01 06:47] LABS: RED CELL DISTRIBUTION WIDTH 15.9 % (11.5-14.5)
[2018-10-01 06:57] LABS: CALCIUM 8.4 mg/dL (8.5-10.1); CARBON DIOXIDE 28.1 mmol/L (21-32); CHLORIDE SERUM 106 mmol/L (98-107); CREATININE SERUM 1.3 mg/dL (0.7-1.3); GLUCOSE SERUM 257 mg/dL (74-106); POTASSIUM SERUM 3.4 mmol/L (3.5-5.1); SODIUM SERUM 145 mmol/L (136-145)
--- NOTE | 2018-10-01 08:00 | NUR ---
RECEIVED PATIENT WITH MULTIPLE COMPLAINTS OF BEING HUNGERY AND PAIN TO THE LOWER EXTREMITIES. PATIENT STATES THE MORPHINE DID NOT WORK LAST NIGHT AND HAD A SLEEPLESS NIGHT. PATIENT HAS HYPOACTIVE BOWEL SOUNDS AND PATIENT HAS DIMINSIHED BREATH SOUNDS. PATIENT HAS BEEN SELF SUCTIONING AND WITH HISTORY OF COPD AND CHF. RECEIVED ZOSYN ORDERED AND NO ADVERSE REACTION AND PULSES PALPABLE BUT THE TRACE EDMEA TO THE LOWER EXTREMITES. PATIENT HAS REFUSED PT TODAY AND WITH GENERAL WEAKNESS NOTED. PATIENT IS WITH IV INTACT AND CONTINUED ON 55 ORDERED. PATIENT AHD NOTED LABS OF H AND H OF 8.8/26, AND PT AT 28.9, AND INR AT 3.0. PATIENT HAD REQUESTED TO SEE THE DOCTOR AND ADIVSED THE TEAM OF THIS AND WILL MONTIOR FOR THE PATIENT TO HAVE BEEN SEEN AND NEEDS MET.
[2018-10-01 09:42] VITALS: BP 110/44
--- NOTE | 2018-10-01 12:01 | NUR ---
PHYSICAL THERAPY: ATTEMPTED PHYSICAL THERAPY FOR SCHEDULED TREATMENT SESSION. PATIENT REFUSED DUE TO FEELING WEAK.
--- NOTE | 2018-10-01 13:48 | NUR ---
BLOOD SUGAR AT 273 AND NO INSULIN GIVEN DUE TO THE NPO STATUS. PATIENT HAS BEEN ANXIOUS AND STATED HE WOULD RATHER ASPIRATE THAN BE WITHOUT FOOD AND HIS MEDICATIONS. FOR NOW THOUGH THE PATIENT IS NPO DUE TO FAILING THE SWALLOW EVAL. PATIENT CONTINUED ON D5 ORDERED AT 50CC PER HOUR.
[2018-10-01 17:05] VITALS: BP 139/45
--- NOTE | 2018-10-01 17:29 | NUR ---
BLOOD SUGAR AT DINNER AT 275 AND THE COVERAGE WAS HELD DUE TO NPO STATUS. PATIENT CONTINUES TO REQUEST FOOD AND DRINK. ADVISED SERVERAL TIMES ABOUT THE INDICATION AND THE POSSIBLE RISK FOR ASPIRATION OF THE FOOD AND FLUIDS IN THE LUNGS. PATIENT HAD CALLED FOR A BREATHING TREATMENT AND THE SATURATION WAS AT 89 AT THAT TIME. THE TREATMENT WAS GIVEN AND PATIENT IS RESTING QUIELTY AT THIS TIME.
--- NOTE | 2018-10-01 19:30 | NUR ---
RECEIVED PT IN BED AWAKE AND RESTING QUIETLY. HE IS ORIENTED TO PERSON AND PLACE. NO C/O HEADACHE AND DIZZINESS. NO SOB NOTED. ON O2 AT 3L VIA N/C . HE HAS NO C/O PAIN AT THIS TIME. PT ON AIR MATTRESS. BOTH HEELS OFFLODED ON PILLOWS. W/ HEEL PROTECTORS IN PLACE. W/ CABAN CATH DRAINING DARK ADAMA URINE. W / IVF D5/1/2 NS AT 50 CC/HR VIA RTAC. CALL LIGHT W/IN REACH.
[2018-10-01 20:26] VITALS: BP 115/61
--- NOTE | 2018-10-01 21:40 | NUR ---
PT'S MEDS CRUSHED AND MIXED W/ APPLE SAUCE. PT WAS ABLE TO TAKE 100 % OF IT W/ ASPIRATION PRECAUTION.
--- NOTE | 2018-10-02 00:50 | NUR ---
PT APPEARS TO BE SLEEPING COMFORTABLY ON ROUNDS. HE IS EASILY AROUSABLE. NO C/O DISCOMFORT.
--- NOTE | 2018-10-02 05:09 | NUR ---
PT SLEPT AT LONG INTERVALS. HE WAS CALM ALL NIGHT. NO EPISODE OF SOB. HE HAD NO C/O PAIN. PT REPOSITIONED PER PROTOCOL. LEGS ELEVATED AND REDISTRIBUTED PRESSURE W/ PILLOWS. CABAN CATH INTACT AND PATENT. CABAN CATH CARE DONE PER PROTOCOL. IVF D5NS INFUSING WELL AT 50 CC/HR VIA RTAC. ALL NEEDS ATTENDED TO.
[2018-10-02 05:23] VITALS: BP 124/61
--- NOTE | 2018-10-02 05:53 | NUR ---
PT C/O PAIN ON BILAT FEET 01/14. MORPHINE SULFATE 1 MG IV GIVEN.
[2018-10-02 06:15] LABS: BASOPHIL % 0.3 % (0-2); PLATELET COUNT 210 x10^3mcL (130-400)
[2018-10-02 06:16] LABS: RED CELL DISTRIBUTION WIDTH 16.1 % (11.5-14.5)
--- NOTE | 2018-10-02 06:44 | NUR ---
PT STILL C/O BILAT FEET PAIN 12/14. TYLENOL 650 MG PO ( CRUSHED AND MIXED W/ APPLE SAUCE ) GIVEN. PT WAS ABLE TO SWALLOW WELL W/ ASPIRATION PREC.
[2018-10-02 06:51] LABS: CALCIUM 8.6 mg/dL (8.5-10.1); CARBON DIOXIDE 29.9 mmol/L (21-32); CHLORIDE SERUM 111 mmol/L (98-107); CREATININE SERUM 1.2 mg/dL (0.7-1.3); GLUCOSE SERUM 110 mg/dL (74-106); MAGNESIUM 1.6 mg/dL (1.8-2.4); PHOSPHOROUS 2.2 mg/dL (2.5-4.9); POTASSIUM SERUM 3.2 mmol/L (3.5-5.1); SODIUM SERUM 150 mmol/L (136-145)
--- NOTE | 2018-10-02 07:25 | NUR ---
RECEIVED PT. IN BED A/A/O X3. PT. APPEARS FORGETFUL. NO SOB, NO N/V NOTED. PT. C/O ON AND OFF PAIN TO BLE. PT. IS ON AIR MATTRESS. HEEL PROTECTORS IN PLACE. D5NS RUNNING AT 50 CC/HR VIA IV SITE AT R AC. SCD TO BLE MAINTAINED. F/C DRAINING ADAMA URINE. BED IN LOW POS., CALL LIGHT WITHIN REACH. SIDE RAILS UP X3.
[2018-10-02 09:22] VITALS: BP 124/61
[2018-10-02 09:36] VITALS: BP 119/52
--- NOTE | 2018-10-02 13:00 | NUR ---
DR. RAMACHANDRAN STATED OK TO CRUSH ORAL MEDS. AND MIX WITH APPLE SAUCE FOR ORAL MEDICATION ADMINISTRATION.
--- NOTE | 2018-10-02 14:30 | NUR ---
CLEANSED OPEN DRY WOUNDS TO RAOUL. BUTTOCKS WITH NS. Z GUARD CREAM APPLIED TO WOUND SITES BEFORE COVERING WITH OPTIFOAM DRESSING. ALSO APPLIED Z GUARD CREAM TO SACRAL-COCCYGEAL AREA, RAOUL. BUTTOCKS, RAOUL. GROINS, SCROTAL AREA, AND RAOUL. THIGHS. CLEANSED MULTIPLE CLOSED, BLACK WOUNDS TO R FOOT AND L FOOT WITH BETADINE SOLUTION. DRY DRESSINGS APPLIED TO WOUND SITES BEFORE COVERING WITH KURLIX ROLLS. ALSO CLEANSED DRY SKIN TEAR TO L EBLOW WITH BETADINE SOLUTION. SKIN TEAR IS DRY AND KRANTHI.
[2018-10-02 18:19] VITALS: BP 138/64
--- NOTE | 2018-10-02 18:30 | NUR ---
RECEIVED A PHONE CALL FROM DR. HOANG WHO STATED THAT HE WILL COME IN TO SEE THE PT. TOMORROW.
--- NOTE | 2018-10-02 19:30 | NUR ---
RECEIVED PT IN BED AWAKE, ALERT,ORIENTEDNX3. SPEECH IS SLOW BUT CLEAR. HE HAS NO C/O HEADACHE AND DIZZINESS. LUNG SOUNDS DIMINISHED AT THE BASES. NO SOB NOTED AT THIS TIME. ON O2 AT 3L VIA N/C. BOWEL SOUNDS ACTIVE. W/ CABAN CATH INTACT AND PATENT. BILAT FEET W/ HEEL PROTECTORS. BLE ELEVATED ON PILLOWS. PT IS ON AIR MATTRESS. W/ IVF D5 1/2 NS AT 50 CC/HR VIA RTAC. CALL LIGHT W/IN REACH.
[2018-10-02 21:16] VITALS: BP 131/62
--- NOTE | 2018-10-03 00:10 | NUR ---
PHOTOS OF SKIN ALTERATION TAKEN. SKIN TEAR TO LT ARM, WOUNDS TO BILAT FEET CLEANED AND APPLIED W/ BETADINE .DRESSING APPLIED TO BILAT FEET ORDERED. HEEL PROTECTORS KEPT IN PLACE. PRESSURE POINTS REDISTRIBUTED W/ PILLOW.
--- NOTE | 2018-10-03 00:15 | NUR ---
PT APPEARS TO BE SLEEPING COMFORTABLY. HE IS EASILY AROUSABLE. HE HAS NO C/O DISCOMFORT AT THIS TIME.
[2018-10-03 05:22] VITALS: BP 118/56
--- NOTE | 2018-10-03 06:18 | NUR ---
PT SLEPT AT LONG INTERVALS. HE REMAINS ALERT AND ORIENTED X3. HE HAD NO EPISODE OF SOB. PT COUGHING SUCTIONING HIMSELF AT TIMES. HE HAD NO C/O PAIN. PT REPOSITONED PER PROTOCOL. PRESSURE REDISTRIBUTED W/ PILLOWS. CABAN CATH INTACT AND PATENT CABAN CATH CARE DONE PER PROTOCOL. IVF D5 1/2 NS INFUSING WELL AT 50 CC/HR VIA RTAC. ALL NEEDS ATTENDED TO.
[2018-10-03 06:32] LABS: BASOPHIL % 0.2 % (0-2); PLATELET COUNT 222 x10^3mcL (130-400)
[2018-10-03 06:38] LABS: RED CELL DISTRIBUTION WIDTH 16.9 % (11.5-14.5)
[2018-10-03 07:24] LABS: CALCIUM 8.7 mg/dL (8.5-10.1); CARBON DIOXIDE 30.8 mmol/L (21-32); CHLORIDE SERUM 112 mmol/L (98-107); CREATININE SERUM 1.2 mg/dL (0.7-1.3); GLUCOSE SERUM 215 mg/dL (74-106); POTASSIUM SERUM 3.8 mmol/L (3.5-5.1); SODIUM SERUM 149 mmol/L (136-145)
--- NOTE | 2018-10-03 08:14 | NUR ---
A+OX3, NO RESPIRATORY DISTRESS NOTED, MEDSURG, PACEMAKER TO L UPPER CHEST, PULSES MODERATE AND EQUAL RAOUL, LUNG SOUNDS DIMINISHED, 3L NC, BOWEL SOUNDS ACTIVE, CABAN CATH DRAINING ADAMA URINE, GENERALIZED WEAKNESS, DARK DISCOLORATION TO AND SKIN TEAR TO LUE, BLANCHABLE ERYTHEMA WITH OPEN WOUND TO COCCYX WITH OPTIFOAM, ERYTHEMA TO PERIANAL AREA, SCABS TO BOTH FEET WITH DRESSINGS CDI, IV IN RAC WITH D5 1/2 NS @ 50 ML/HR, SITE WNL, RBC 3.05, H/H 9.71/28, PT 30.8, PTT 58.4, INR 3.2, NA 149.
--- NOTE | 2018-10-03 10:00 | NUR ---
IN AND CONSULTED. ASSISTED HIM IN PLACING THE NGTUBE AT THE BEDSIDE. UNABLE TO DO PEGTUBE D/T ELEVATED INR PER . HAD EXPLAINED TO PT PLACEMENT OF NGTUBE AND HAD VERBALIZED UNDERSTANDING. PT TOLERATED PROCEDURE WELL. SECURED NGTUBE TO RT NARES WITH TAPE. KUB ORDERED TO CHECK PLACEMENT PER . ROVERTO RN ASSIGNED TO THIS PT MADE AWARE OF ABOVE.
--- NOTE | 2018-10-03 10:00 | NUR ---
PER CHARGE NURSE LIAM, NG TUBE INSERTED BY DR KNOWLES AT BEDSIDE AND KUB ORDERED.
--- NOTE | 2018-10-03 10:46 | NUR ---
P.T. NOTES PATIENT REFUSED TO BE SEEN TODAY, STATES NOT FEELING UP FOR IT, NEW NG TUBE PLACED THIS MORNING, PER NURSING.
--- NOTE | 2018-10-03 10:51 | NUR ---
DR KNOWLES NOTIFIED OF THAT KUB SHOWED NG TUBE AT TIP OF GE JUNCTION AND ORDERED TO ADVANCE NG TUBE 2 INCHES AND ADDITIONAL KUB NOT NECESSARY.
[2018-10-03 10:52] VITALS: BP 115/50
--- NOTE | 2018-10-03 12:18 | NUR ---
PER DR KNOWLES ORDERS, NG TUBE ADVANCED BY 3 INCHES BY CHARGE NURSE LIAM. PER DR KNOWLES, NO KUB NEEDED. PLACEMENT ALSO CONFIRMED BY AUSCULTATING SOUND OF AIR WHEN PUSHED INTO NG TUBE BY SYRINGE. TUBE FEEDING INITIATED: GLUCERNA @ 30 ML/HR, H20 FLUSH 30 ML Q 8 HRS. PT RESTING IN BED, NO RESPIRATORY DSITRESS NOTED, DENIES PAIN, CALL LIGHT WITHIN REACH.
--- NOTE | 2018-10-03 13:14 | NUR ---
PT RESTING IN BED, RECEIVING BREATHING TREATMENT FROM RT AT BEDSIDE, NO RESPRIATORY DSITRESS NOTED, DENIES PAIN, CALL LIGHT WITHIN REACH.
--- NOTE | 2018-10-03 14:42 | NUR ---
DAUGHTER HANG BHAT AT BEDSIDE STATES DR KNOWLES NOTIFIED HER VIA TELEPHONE ABOUT NG TUBE PLACEMENT AND POSSIBLE PEG TUBE PLACEMENT. WITNESSED DAUGHTER HANG BHAT SIGN CONSENT FOR EGD/PEG TUBE. PT RESTING IN BED, NO RESPIRATORY DISTRESS NOTED, CALL LIGHT WITHIN REACH.
--- NOTE | 2018-10-03 16:03 | NUR ---
PT COMPLAINING OF BLE PAIN, FAMILY REQUESTING TYLENOL, TYLENOL GIVEN, CALL LIGHT WITHIN REACH. FAMILY AT BEDSIDE.
--- NOTE | 2018-10-03 16:28 | NUR ---
PHYSICAL THERAPY DAILY NOTES CO-SIGN All documentation done by the Custom Feed Mill Operator for 10/03/18 has been reviewed. I agree with the documentation. Reviewed/Co-Signed by: Bernie Sahu PT Documentation Done by:TALI APONTE PTA
--- NOTE | 2018-10-03 16:50 | NUR ---
PHYSICAL THERAPY DAILY NOTES CO-SIGN All documentation done by the Inside Wireman for 10/03/18 has been reviewed. I agree with the documentation. Reviewed/Co-Signed by: Quinten Cope PT Documentation Done by:LADY VALDES [employer]ODUCTION [employer] FOR 10/01/2018
--- NOTE | 2018-10-03 16:55 | NUR ---
PT RESTING IN BED, NO RESPIRATORY DSITRESS NOTED, COMPLAINING OF 9/10 BLE PAIN UNRELIEVED BY TYLENOL, CALL LIGHT WITHIN REACH, FAMILY AT BEDSIDE.
[2018-10-03 17:39] VITALS: BP 105/51
--- NOTE | 2018-10-03 18:15 | NUR ---
AFTER 6 HRS, RESIDUAL 10 ML REPLACED, TUBE FEEDING ADVANCED FROM 30 ML/HR TO 40 ML/HR. NO RESPRIATORY DISTRESS NOTED, CALL LIGHT WITHIN REACH.
--- NOTE | 2018-10-03 19:22 | NUR ---
ENDOARSED CARE TO AMMY DUMONT.
[2018-10-03 20:00] VITALS: BP 101/55
--- NOTE | 2018-10-03 20:00 | NUR ---
PATIENT RECEIVED IN BED AWAKE, ALERT AND ORIENTED X2, FORGETFUL, SPEECH CLEAR, ABLE TO ANSWER SIMPLE QUESTIONS APPROPRIATELY.BREATHING EVEN AND UNLABORED NO RESP. DISTRESS, FOUND ON 4LNC SAT 94-95%, NOTED WITH OCC CONGESTED COUGH, PATIENT HOLDING A JANKER AND WHEN ASKED IF HE KNOWS HOW TO USE IT AND HE STATED YES, NOTED ON TUBING YELLOW MUCOUS,BS FINE CRACKLES BASE, NO NOTED SOB, NOTED TO HAVE HOB AT HIGH FOWLERS. HX; PACEMAKER, NON TELE, MED/SURG PATIENT, DNR, HR=54BPM. ABDOMEN SOFT NON DISTENDED ACTIVE BS, NOTED A NGTUBE TO RT NARES AND IS RECEIVING FEEDING AT 40 ML/HR, FWF AT 30 ML Q8RHS REGULATED VIA [place] PUMP,CHECKED AND CONFIRMED PLACEMENT,TAPE SECURED TO NOSE. INCONTINENT OF STOOL PER AM NURSE DRY THIS TIME.CABAN CATHETER PATENT AND INTACT, STATLOCK TO RT THIGH SECURED, NO DEPENDENT LOOPS TO TUBING AND CABAN BAG OFF THE FLOOR. SACRAL /COCYX-BLANCHABLE ERYTHEMA W OPEN WOUND AND OPTIFOAM DRESSING CDI, BLE/BUE WITH DARK DISCOLORATION, LUE SKIN TEAR HEALING CASE HARDENER, MEDIAL LATERAL ASPECT OF BOTH FEET WITH DRY SCAB W/ DRESSING CDI,REDNESS TO PERINEAL AREA.HEEL BOTH TO BILAT HEEL IN USE, OFF LOAD HEELS, ON AIR MATTRESS. PATIENT WITH MAX ASSIST WITH ADL'S AND TURNING. PATIENT AND FAMILY INFORMED ABOUT POC. SAFETY/FALL/ASP PRECAUTIONS MAINTAINED. WILL CONTINUE TO MONITOR.
--- NOTE | 2018-10-03 22:00 | NUR ---
PATIENT TURNED AND REPOSITIONED THIS TIME, KEEPING HEEL OFF THE BED AND KEEPING HOB AT HIGH FOWLERS . WILL CONTINUE TO MONITOR.
--- NOTE | 2018-10-03 22:22 | NUR ---
SCHEDULED MEDS ADMINISTERED VIA NGTUBE, CHECKED AND CONFIRMED PLACEMENT PRIOR, PATIENT INFORMED ABOUT EACH MEDS ACTIONS AND PURPOSE PRIOR, PT ON HIGH FOWLERS POSITION, PATIENT ALSO COMPLAINED OF GENERALIZED BODY PAIN RATED AT 5/10 TYLENOL 650MG GIVEN VIA NGTUBE. WILL MONITOR EFFECTIVENESS. WILL CONTINUE TO MONITOR.
--- NOTE | 2018-10-04 00:27 | NUR ---
ROUNDS MADE PATIENT SLEEPING QUIETLY AND COMFORTABLY THIS TIME, EASILY AWAKEN WHEN NAME CALLED, NO RESP. DISTRESS O2 MAINTAINED. TURNED TO HIS BACK THIS TIME. NGTUBE TO FEEDING TUBE SECURED WITH TAPE. SAFETY MAINTAINED. WILL CONTINUE TO MONITOR.
--- NOTE | 2018-10-04 02:30 | NUR ---
ADJUSTED RATE TO 45 ML/HR, CHECKED RESIDUAL PRIOR WAS 20 REPLACED.
[2018-10-04 06:11] VITALS: BP 116/57
[2018-10-04 06:28] LABS: BASOPHIL % 0.4 % (0-2); PLATELET COUNT 209 x10^3mcL (130-400)
[2018-10-04 06:40] LABS: RED CELL DISTRIBUTION WIDTH 16.1 % (11.5-14.5)
--- NOTE | 2018-10-04 06:50 | NUR ---
PATIENT TURNED AND REPOSITIONED, NO DISTRESS, O2 MAINTAINED. IV SITE NO SIGN OF INFILTRATION. WILL CONTINUE TO MONITOR.
--- NOTE | 2018-10-04 06:51 | NUR ---
PATIENT HAD A RESTFUL AND COMFORTABLE NIGHT, WAS TURNED AND REPOSITIONED, KEEPING HOB ELEVATED TO PREVENT ASPIRATION,NO RESIDUAL THIS AM, KEPT RATE AT 45ML/HR TOLERATING WELL.HAD X2 SOFT BROWN STOOL, GOOD DENIS CARE RENDERED, OPTIFOAM TO COCCYX CHANGED.WAS MEDICATED X1 WITH TYLENOL VIA NGTUBE FOR COMPLAINT OF GENERALIZED BODY PAIN/ACHES RECEIVED RELIEF. SAFETY/FALL PRECAUTIONS OBSERVED AND MAINTAINED. WILL ENDORSE CONTINUITY OF CARE TO INCOMING NURSE.
[2018-10-04 06:53] LABS: CALCIUM 8.6 mg/dL (8.5-10.1); CARBON DIOXIDE 30.9 mmol/L (21-32); CHLORIDE SERUM 112 mmol/L (98-107); CREATININE SERUM 1.3 mg/dL (0.7-1.3); GLUCOSE SERUM 211 mg/dL (74-106); POTASSIUM SERUM 3.7 mmol/L (3.5-5.1); SODIUM SERUM 150 mmol/L (136-145)
--- NOTE | 2018-10-04 07:36 | NUR ---
BEDSIDE HANDS OFF AND INTRODUCTION PERFORMED WITH INCOMING NURSE LE.
--- NOTE | 2018-10-04 08:51 | NUR ---
PT COMPLAINING OF BLE 10/10 PAIN, MORPHINE IVP GIVEN. RESIDUAL 0 ML, TUBE FEEDING ON HOLD PER DR LAWTON ORDERS FOR POSSIBLE PEG TUBE PLACEMENT TODAY. PT O2 SAT 88% ON 4 L NC. RT AT BEDSIDE GIVING PT BREATHING TREATMENT AND INCREASED 6L NC. PT O2 SAT NOW 94%. CALL LIGHT WITHIN REACH.
[2018-10-04 09:00] VITALS: BP 146/66
--- NOTE | 2018-10-04 09:28 | NUR ---
PT OFF UNIT FOR PEG TUBE PLACEMENT.
--- NOTE | 2018-10-04 10:58 | NUR ---
P.T. NOTES UNABLE TO SEE PATIENT, PER NURSING PATIENT IS HAVING PEG TUBE PLACEMENT.
--- NOTE | 2018-10-04 11:58 | NUR ---
PT BACK FROM PEG TUBE PLACEMENT, VS STABLE, NO RESPIRATORY DSITRESS NOTED, DENIES PAIN, 5L NC, TUBE FEEDING RESUMED @ 45 ML/HR TO PEG TUBE IN ABD, JIE LIGHT WITHIN REACH.
[2018-10-04 12:39] VITALS: BP 132/65
--- NOTE | 2018-10-04 12:45 | NUR ---
PT RESTING IN BED, NO RESPIRATORY DSITRESS NOTED, DENIES PAIN, AND DAUGHTER AT BEDSIDE UPDATED ON PT STATUS, CALL LIGHT WITHIN REACH.
--- NOTE | 2018-10-04 12:48 | NUR ---
Follow-up Nutrition Assessment- 212/A RY SUN MR Dx: PNA, COPD Labs: (10/04) NA 150H, BG 211H, BUN 20H, MG 1.6L Meds: Coreg, lantus, Lasix, Lipitor, milk of magnesia, mucinex, reglan, zofran TF Regimen: Glucerna 1.2 (NG tube) @ 30 ml/hr to a goal of 50 ml/hr, FWF 30 ml Q6H TF intake: (10/03-10/04) 494 ml Weights: (09/29) 66 kg Skin: Erythema and wound to coccyx Rick: 13 Edema: none Last BM: 10/03 RDN visit(10/04): pt is undergoing a PEG placement today. Pt's RN Maris said that TF Glucerna 1.2 is running at 45ml/hr and pt is tolerating it well without any residuals. Pt does not have any N/V at this time. Pt underwent QUALITY ASSURANCE CLERK eval on 09/30 and recommendation was for alternate mode of feeding. Estimated Nutritional Needs Based on actual body weight 66 kg Energy: 3913-5564 kcal/d (25-30 kcal/kg- geriatric maintenance/wound healing) Protein: 66- 79g/d (1.0-1.2 g/kg)- wound healing and preservation of lean body mass Fluid: 5054-5956 ml/d (1 ml/kcal-fluid balance) or per doctor Nutrition Diagnosis 1. Altered nutrition related lab values related to endocrine dysfunction as evidenced by BG 211, A1C 9.6 (ongoing) Intervention 1. Recommend Glucerna @ 45ml/hr with goal of 55ml/hr. FWF 150 ml Q4H. Goal rate provides 1580 kcal, 79g protein, 1060 ml free water. 2. Recommend Yinka BID to support wound healing Monitor/Evaluate Previous goal: Initiate CCHO if medically appropriate (not met) Goal: TF intake at least 75% of estimated needs Monitor: TF intake/tolerance, Labs, GI function F/U in 2-3 days as high risk 10/06-10/07
--- NOTE | 2018-10-04 13:38 | NUR ---
PT COMPLAINING OF 8/10 BLE PAIN, REQUESTING MORPHINE. MORPHINE DCD BY DR KNOWLES. JUSTIN SENIOR REGULATORY AFFAIRS SPECIALIST NOTIFIED AND TELEPHONE ORDERED HYDROCODONE 5MG Q 6HRS PRN. ORDER READ BACK AND VERIFIED. FAMILY NOTIFIED.
--- NOTE | 2018-10-04 13:59 | NUR ---
PT COMPLAINING OF 8/10 BLE, NORCO GIVEN, NO RESPRIATORY DSITRESS NOTED, FAMILY AT BEDSIDE, CALL LIGHT WITHIN REACH.
--- NOTE | 2018-10-04 16:14 | NUR ---
PHYSICAL THERAPY DAILY NOTES CO-SIGN All documentation done by the Tire Buffer for 10/04/18 has been reviewed. I agree with the documentation. Reviewed/Co-Signed by: Bernie Sahu PT Documentation Done by:TALI APONTE PTA
[2018-10-04 17:33] VITALS: BP 123/57
--- NOTE | 2018-10-04 18:00 | NUR ---
PT RESTING IN BED, NO RESPIRATORY DSITRESS NOTED, DENIES PAIN. PEG TUBE RESIDUAL: 5 ML REPLACED. TUBE FEEDING CONT @ 45 ML, H2O FLUSH 100 ML Q 4 HRS. CABAN CARE DONE. CALL LIGHT WITHIN REACH.
--- NOTE | 2018-10-04 18:54 | NUR ---
PT RESTING IN BED, NO RESPIRATORY DISTRESS NOTED, DENIES PAIN, CALL LIGHT WITHIN REACH.
[2018-10-04 20:19] VITALS: BP 122/53
--- NOTE | 2018-10-04 20:26 | NUR ---
PATIENT RECEIVED IN BED AWAKE, ALERT AND ORIENTED X2, FORGETFUL, SPEECH CLEAR, ABLE TO ANSWER SIMPLE QUESTIONS APPROPRIATELY.BREATHING EVEN AND UNLABORED NO RESP. DISTRESS, FOUND ON 5LNC SAT 94-95%, NOTED WITH OCC CONGESTED COUGH, PATIENT HOLDING A YANKAUER AND WHEN ASKED IF HE KNOWS HOW TO USE IT AND HE STATED YES, NOTED ON TUBING YELLOW MUCOUS,BS FINE CRACKLES BASE, NO NOTED SOB, NOTED TO HAVE HOB AT HIGH FOWLERS. HX; PACEMAKER, NON TELE, MED/SURG PATIENT, DNR, HR=71BPM. ABDOMEN SOFT NON DISTENDED ACTIVE BS,S/P EGD WITH PEG PLACED TODAY, GLUCERNA 1.2 AT 45 ML/HR, CHECKED RESIDUAL WAS 10 ML REPLACED. INCONTINENT OF STOOL PER AM NURSE DRY THIS TIME.CABAN CATHETER PATENT AND INTACT, STATLOCK TO RT THIGH SECURED, NO DEPENDENT LOOPS TO TUBING AND CABAN BAG OFF THE FLOOR. SACRAL /COCYX-BLANCHABLE ERYTHEMA W OPEN WOUND AND OPTIFOAM DRESSING CDI, BLE/BUE WITH DARK DISCOLORATION, LUE SKIN TEAR HEALING KRANTHI, MEDIAL LATERAL ASPECT OF BOTH FEET WITH DRY SCAB W/ DRESSING CDI,REDNESS TO PERINEAL AREA.HEEL BOTH TO BILAT HEEL IN USE, OFF LOAD HEELS, ON AIR MATTRESS. PATIENT WITH MAX ASSIST WITH ADL'S AND TURNING. PATIENT AND FAMILY INFORMED ABOUT POC. SAFETY/FALL/ASP PRECAUTIONS MAINTAINED. WILL CONTINUE TO MONITOR.
--- NOTE | 2018-10-04 21:30 | NUR ---
RANDOM BLOOD GLUCOSE CHECKED WAS 198.
--- NOTE | 2018-10-04 22:00 | NUR ---
HS CARE RENDERED, PATIENT HAD A LOOSE BROWN STOOL, CLEANED AND KEPT CLEAN AND DRY, OPTIFOAM TO COPCCYX AREA REMOVED , WOUND CARE CLEANSED AND RE-APPLIED NEW OPTIFOAM, TURNED AND REPOSITIONED, KEPT HOB UPRIGHT. DRESSING TO GTUBE SITE CDI SECURED WITH TAPE. WILL CONTINUE TO MONITOR.
--- NOTE | 2018-10-04 22:44 | NUR ---
PATIENT CHECKED SLEEPING AWAKEN WHEN NAME CALLED, STATED GENERALIZED BODY PAIN IS AT 2/10.
--- NOTE | 2018-10-04 23:40 | NUR ---
PATIENT CHECKED THIS TIME, SLEEPING BUT EASILY AWAKEN WHEN NAME CALLED, NO DISTRESS NOTED NOR VERBALIZED, O2 AT 5LNC MAINTAINED. TOLERATING FEEDING, KEPT HOB AT FOWLERS POSITION, TURNED AND REPOSITIONED THIS TIME. SAFETY MAINTAINED. WILL CONTINUE TO MONITOR.
--- NOTE | 2018-10-05 02:24 | NUR ---
FEED RATE INCREASED TO 50 M/HR (GOAL), PATIENT REMAINED ASLEEP AT THIS TIME. NO DISTRESS. WILL CONTINUE TO MONITOR.
--- NOTE | 2018-10-05 05:00 | NUR ---
PATIENT INCONTINENT OF STOOL, CLEANED AND KEPT DRY, APPLIED Z-GUARD TO GROIN AND REPI AREA AND COCCYX, RE-DRESSED COCCY AREA WITH OPTIFOAM DRESSING. TURNED AND REPOSITIONED, NO RESIDUAL FROM GTUBE. TOLERATED RATE AT 50 ML/HR.
[2018-10-05 05:45] VITALS: BP 135/62
--- NOTE | 2018-10-05 06:29 | NUR ---
PATIENT HAD A RESTFUL AND COMFORTABLE NIGHT, WAS TURNED AND REPOSITIONED Q2HRS, KEPT HOB ELEVATED ALL TIMES, TOLERATED FEEDING AT 50 ML/HR, CATHETER CARE RENDERED THIS TIME. COMPLAINED OF BLE PAIN AND GENERALIZED BODY PAIN, MEDICATED PRN AND RECEIVED RELIEF. O2 AT 5LNC MAINTAINED, MOUTH BREATHER. IV SITE NO SIGN OF INFILTRATION. SAFETY/FALL PRECAUTION MAINTAINED. WILL ENDORSE CONTINUITY OF CARE TO INCOMING NURSE.
[2018-10-05 06:57] LABS: BASOPHIL % 0.2 % (0-2); PLATELET COUNT 210 x10^3mcL (130-400)
[2018-10-05 07:06] LABS: CALCIUM 8.8 mg/dL (8.5-10.1); CARBON DIOXIDE 33.5 mmol/L (21-32); CHLORIDE SERUM 109 mmol/L (98-107); CREATININE SERUM 1.3 mg/dL (0.7-1.3); GLUCOSE SERUM 202 mg/dL (74-106); POTASSIUM SERUM 4.4 mmol/L (3.5-5.1); SODIUM SERUM 148 mmol/L (136-145)
--- NOTE | 2018-10-05 07:23 | NUR ---
BEDSIDE HANDS OFF AND INTRODUCTION PERFORMED WITH INCOMING NURSE JOHNNIE BUCHANAN.
[2018-10-05 07:36] LABS: RED CELL DISTRIBUTION WIDTH 16.5 % (11.5-14.5)
--- NOTE | 2018-10-05 08:00 | NUR ---
RECEIVED PATIENT ALERT AND ORIENTED TIMES FOUR.LAURA S BEEN ASKING NOW FO BREATHING TREATMENT AND CALLED FOR TREATMENT MADE BY THE [employer]ECKT[employer] OPERATOR [employer]ECES WHILE STAFF AND BIG DATA SOFTWARE ENGINEER ARE MAKING THE REPORT. PATIENT HAS BEEN SEEN BY DR JHAVERI AND HE HAD ASKED HER FOR A BREATHING TREATMENT WELL AND THEN DR BENSON JEAN BAPTISTE PRIOT TO THE ARRIVAL OF THE RT. PATIENT RECEIVED TREATMENT AND NOTED PATIENT AHS BEEN SUCTIONING HIMSELF AND HAS BEEN WITH SOME RALES AND NO COUGH AT THIS ITME BUT REPORTED CONGESTION AND RESPIRATORY DEPRESSION PRIOR. PATIENT ON MUCINEX AND HAS BEEN GIVEN HHN AROUND THE CLOCK. HE HAS BEEN ON G TUBE FEEDING DUE TO ASPIRATION RISK AND POSSIBLE ASPIRATION PRIOR TO ADMISSION,. PATIENT HAD FAILED THE SWALLOW EVAL. IV INTACT AND PATIENT HAS BEEN ON ZOSYN IVPB AND NO ADVERSE REACTION NOTED.
[2018-10-05 10:29] VITALS: BP 130/57
--- NOTE | 2018-10-05 11:44 | NUR ---
PATIENT HAS BEEN GIVEN HIS MEDICATIONS VIA THE G TUBE AND TOLEARTRE WELL SO AFR. NO RESIDUAL NOTED AND PATIENT HAS G TUBE INTACT. DRESSING TO THE BILATARAL FEET INTACT AND DRY. WILL CONTINUE TO MONITOR INDICATED.
--- NOTE | 2018-10-05 14:10 | NUR ---
CALLED TO SPEAK WITH PATIENT. PATIENT IS IRRATABLE AT TIMES BUT HE SEEMS HAPPY TO SPEAK WITH THE .
--- NOTE | 2018-10-05 16:05 | NUR ---
GAVE PATIENT TYLNEOL BUT NOW PREFERS THE NORCO. GAVE NORCO FOR PAIN. WILL MONITOR FOR EFFECTIVENESS.
--- NOTE | 2018-10-05 16:36 | NUR ---
GAVE NORCO ORDERED AND MONITORING FOR EFFECTIVENESS OF THE MEDICATION GIVEN. PATIENTS AT BEDSIDE AND SUPPORTIVE WITH CARE.
[2018-10-05 17:41] VITALS: BP 132/51
--- NOTE | 2018-10-05 18:15 | NUR ---
DRESSING CHANGED T HTE BILATERAL FEET AND THE LEFT ELBOW. PATIENT AHD ALL AREAS DRING WELL. APPLED SOME THERA HONEY TO THE LEFT ELBOW TO HELP HEAL FRUTHER. THE AREAS OF ESHCAR AD LIFTING ON THE FET. WRAPPED WIT GAUZE AND REAPPLIED THE HEELS PROTECTORS INDICATED. TOLERATED THE PROCEDURE WELL. STATES THE FEET FEEL BETTER WELL. NORCO WAS SOMEWHAT EFFECTIVE IN RELIEVING THE LEG PAIN BUT WTIH THE DRESSING CHANGE HE GUIDRY DNOTED A DIFFERANCE AND IS MORE COMFORTABLE AT THIS THIS TIME.
[2018-10-05 18:20] VITALS: BP 132/51
--- NOTE | 2018-10-05 19:15 | NUR ---
REPORT RECEIVED FROM DAY SHIFT RN. PATIENT WAS SEEN AND IS RESTING COMFORTABLY IN BED WATCHING TV. BREATHING EVEN ON ROOM AIR. CONGESTED NO PRODCOUGH NOTED. PATIENT IS ABLE TO SUCTION HIMSELF. NO SOB OR RESP DISTRESS. IV TO THE RAC. PATENT AND INTACT. NO REDNESS OR SWELLING NOTED. DENIES CHEST PAIN. MED SURG PATIENT. HAS PACEMAKER. HEEL PROTECTORS IN PLACE. CABAN CATH IN PLACE DRAINING YELLOW URINE BY GRAVITY. NO C/O PAIN. GTUBE IN PLACE WITH TUBE FEEDING. ABLE TO MAKE NEEDS KNOWN. COMFORT AND SAFETY MEASURES MAINTAINED. BED IS LOCKED AND IN THE LOWEST POSITION. CALL LIGHT IS WITHIN REACH. WILL CONTINUE TO MONITOR.
[2018-10-05 21:02] VITALS: BP 137/50
--- NOTE | 2018-10-06 00:30 | NUR ---
PATIENT HAD A BM. PATIENT WAS CLEANED WITH JOVANNY GATES. BED LINENS WERE CHANGED WELL. OLD OPTIFOAM DRESSING ON BUTTOCK WAS REMOVED. Z GUARD APPLIED, NEW OPTIFOAM WAS PLACE. CDI. WILL CONTINUE TO MONITOR PATIENT. CALL LIGHT IS WITHIN REACH.
--- NOTE | 2018-10-06 01:51 | NUR ---
PATIENT IS RESTING WITH EYES CLOSED IN BED. NO DISTRESS NOTED. BREATHING EVEN ON 5L NC. NO S/S OF PAIN. TUBE FEEDING AT 50ML/HR. CABAN IN PLACE DRAINING YELLOW URINE BY GRAVITY. CALL LIGHT IS WITHIN REACH. WILL CONTINUE TO MONITOR.
--- NOTE | 2018-10-06 05:33 | NUR ---
PATIENT SLEPT IN INTERVALS THROUGHOUT THE NIGHT. NO ACUTE/SIGNIFICANT CHANGES NOTED. BREATHING EVEN ON 5L NC. NO DISTRESS NOTED. NO C/O PAIN THROUGHOUT THE NIGHT. IV TO THE RAC. PATENT AND INTACT. NO REDNESS OR SWELLING NOTED. GTUBE IN PLACE WITH CONTINUOUS TUBE FEEDING AT 50ML/HR. RESIDUALS CHECKED BEFORE MEDS WERE GIVEN. 10ML OF RESIDUALS NOTED AND RETURNED. CABAN CATH IN PLACE DRAINING YELLOW URINE BY GRAVITY. HEEL PROTECTORS IN PLACE. ON AIR MATTRESS. ALL NEEDS AND CONCERNS ADDRESSED. COMFORT AND SAFETY MEASURES MAINTAINED. ASPIRATION PRECAUTIONS MAINTAINED. CALL LIGHT IS WITHIN REACH. WILL ENDORSE CARE TO DAY SHIFT RN
[2018-10-06 06:04] VITALS: BP 134/59
[2018-10-06 07:13] LABS: CALCIUM 8.4 mg/dL (8.5-10.1); CARBON DIOXIDE 31.8 mmol/L (21-32); CHLORIDE SERUM 107 mmol/L (98-107); CREATININE SERUM 1.2 mg/dL (0.7-1.3); GLUCOSE SERUM 135 mg/dL (74-106); POTASSIUM SERUM 3.7 mmol/L (3.5-5.1); SODIUM SERUM 145 mmol/L (136-145)
--- NOTE | 2018-10-06 07:28 | NUR ---
PHYSICAL THERAPY DAILY NOTES CO-SIGN All documentation done by the Sheet Metal Assembler for 10/06/18 has been reviewed. I agree with the documentation. Reviewed/Co-Signed by: Bernie Sahu PT Documentation Done by:TALI APONTE PTA FOR 10/05/18
[2018-10-06 08:13] LABS: BASOPHIL % 0.2 % (0-2); PLATELET COUNT 208 x10^3mcL (130-400)
[2018-10-06 08:14] LABS: RED CELL DISTRIBUTION WIDTH 17.1 % (11.5-14.5)
[2018-10-06 09:44] VITALS: BP 131/63
[2018-10-06] MEDS ORDERED: MEROPENEM1 GM IV (09:46)
--- NOTE | 2018-10-06 11:10 | NUR ---
PATIENT CONTINUED ON G TUBE FEEDING AND NO RESIDUAL NOTED AND THE G TUBE FLUSHES WELL. JULIAN METCALFT SOME RALES BUT NO SOB AT THIS TIME CONTINUE DOT SUCTION SELF AND ON TREATMENTS ON DEMAND AND REGULAR. JULIAN GONZALEZ HOB UP AND WIT DRESSING TO EH COCCYX INTACT AND THE BILATERAL LEGS ALSO INTACT. WILL CONTINUED OT MONITOR
--- NOTE | 2018-10-06 11:36 | NUR ---
RECIEVED BEDSIDE REPORT FROM JOHNNIE DUMONT. PATIENT IS RESTING COMFORTABLY IN BED. NO APPARENT SIGNS OF SOB. PATIENT IS ON 5L NC O2 SAT 93%. IV IS INFUSING WELL TO THE RAC. NO REDNESS NOTED. THERE ARE RECENTLY DRESSED WOUNDS TO SACRAL AREA WITH ISLANDS DRESSING, RIGHT ELBOW WITH OPTIFOAM, AND TO THE FEET WITH BETADINE. PATIENT HAS NGT IN PLACE WITH TUBE FFEDING GLUCERNA 1.2 JIE, AT 50ML /HR. PATIENT IS TOLORATING WELL.
--- NOTE | 2018-10-06 13:12 | NUR ---
Follow-up Nutrition Assessment- 212/A RY SUN FU HR Dx: PNA, COPD Labs: (10/06) BG 135H, BUN 24H, (09/29) A1C 9.6H Meds: Coreg, D50, Humulin, ferrous sulfate, lantus, Lasix, Lipitor, reglan, zofran TF Regimen: Glucerna 1.2 (PEG) @ 30 ml/hr to a goal of 65 ml/hr, FWF 100 ml Q4H TF intake: (10/05-10/06) 950 ml Weights: (09/29) 66 kg Skin: wound to coccyx Rick: 13 Edema: trace to LE, Left arm Last BM: 10/05 RDN visit(10/04): pt is receiving TF Glucerna 1.2 @ 50ml/hr and pt is tolerating it well without any residuals. Pt does not have any N/V at this time. Communicated with ILIA Angulo to add Yinka BID since pt has multiple wounds. Estimated Nutritional Needs Based on actual body weight 66 kg Energy: 2446-1582 kcal/d (25-30 kcal/kg- geriatric maintenance/wound healing) Protein: 66- 79g/d (1.0-1.2 g/kg)- wound healing and preservation of lean body mass Fluid: 4555-5033 ml/d (1 ml/kcal-fluid balance) or per doctor Nutrition Diagnosis 1. Altered nutrition related lab values related to endocrine dysfunction as evidenced by BG 211, A1C 9.6 (ongoing) Intervention 1. Recommend Glucerna @ 45ml/hr with goal of 55ml/hr. FWF 150 ml Q4H. Goal rate provides 1580 kcal, 79g protein, 1060 ml free water. 2. Recommend Yinka BID to support wound healing Monitor/Evaluate Previous goal: Glucerna @ goal of 55ml/hr, Yinka BID (not met) Goal: TF intake at least 75% of estimated needs Monitor: TF intake/tolerance, Labs, GI function F/U in 2-3 days as high risk 10/08-10/09
--- NOTE | 2018-10-06 13:15 | NUR ---
NUTRITION CONSULT AT BEDSIDE. NO APPARENT SIGNS OF SOB, PATIENT IS ON 5L NC. PATIENT IS TOLORATING WELL. PATIENT DENIES ANY OTHER NEEDS AT THIS TIME. SAFETY PRECAUTIONS IN PLACE.
--- NOTE | 2018-10-06 15:49 | NUR ---
RECEIVED CALL FROM PATIENT'S DAUGHTER, WILL ASSIST HIM IN CALLING HER. PATIENT IS STABLE NO SIGNS OF APPARENT SOB. SAFETY PRECAUTIONS IN PLACE.
--- NOTE | 2018-10-06 16:25 | NUR ---
RT AT BEDSIDE PERFORMING CPT. PATIENT IS TOLRATING WELL. PATIENT DENIES PAIN AT THIS TIME. SAFETY PRECAUTIONS IN PLACE. PATIENT DENIES ANY OTHER NEED AT THIS TIME.
[2018-10-06 17:54] VITALS: BP 115/54
--- NOTE | 2018-10-06 18:11 | NUR ---
PATIENT IS RESTING COMFORTABLY IN BED. NO SIGNS OF APPARENT SOB, PATIENT DENIES PAIN AT THIS TIME. PATIENT DENIES OTHER NEEDS AT THIS TIME. ADMINISTERED AFTERNOON MEDS. PATIENT TOLORATED WELL. SAFETY PRECAUTIONS MAINTAINED.
--- NOTE | 2018-10-06 18:19 | NUR ---
PATIENT IS STABLE. RESTING COMFORTABLY IN BED. NO SIGNS OF APPARENT SOB, OR PAIN. PATIENT IS ON 5L NC HUMIDIFIED AIR. PT ON RT PROTOCOL. G TUBE IN PLACE RUNNING GLUCERNA 1.2 JIE AT 50ML/HR. PATIENT HAS SACRAL COCCYX WOUND DRESSED WITH ISLAND DRESSING. BILATERAL FEET ESCHAR CLEAD WITH BETADINE AND DRESSED. LEFT ELBOW ABRASION WITH HONEY AND OPTIFOAM. ALL DRESSINGS ARE CDI. PATIENT IS INCONTINENT OF BLADDER AND BOWEL. GENERALIZED WEAKNESS. WILL ENDORSE CARE TO OR SCRUB TECH NURSE. SAFETY PRECAUTIONS ARE IN PLACE.
--- NOTE | 2018-10-06 20:00 | NUR ---
Awake and verbally responsive. No respiratory distress noted on 02 5lpm via n/c. HHNeb treatment given by RT. Denies pain. Denies n/v. GTube feeding glucerna tolerating at 50ml/h. HOB kept elevated. Will cont.to monitor. Call light within reach.
[2018-10-06 20:51] VITALS: BP 133/46
--- NOTE | 2018-10-06 22:30 | NUR ---
Bedtime care rendered. All due meds given. Turned and repositioned. Had low saturation per RT. Placed on 5lpm via oxymizer at this time. Denies SOB. Will cont.to monitor. Call light within reach.
--- NOTE | 2018-10-07 04:18 | NUR ---
Afebrile. No significant change in condition noted. No SOB noted. Remained on 5LPM via oxymizer. sating 98%. No cues of pain. Turned and repositioned q2h. Kept pressure off back and bony prominences. Heels floated on heel protector boots. Kept skin clean and dry. On air mattress overlay. Gtube feeding danilo.well. No residuals noted. No n/v. Cont.on IV merrem. Cont.on HHneb treatment. Occ.non productive cough. No congestion noted. In no apparent distress.
--- NOTE | 2018-10-07 05:16 | NUR ---
Pt.noted very lethargic. FSBS done was 22 then 24 at repeat. D50 IV given as ordered per protocol, rechecked after showed 174. Dr. Paul made aware. No new order given. Pt. easily arousable at this time. Suctioned PRN with minimal secretion noted.
[2018-10-07 05:48] VITALS: BP 96/48
[2018-10-07 06:09] LABS: PLATELET COUNT 207 x10^3mcL (130-400)
[2018-10-07 06:27] LABS: CALCIUM 8.8 mg/dL (8.5-10.1); CARBON DIOXIDE 31.9 mmol/L (21-32); CHLORIDE SERUM 107 mmol/L (98-107); CREATININE SERUM 1.2 mg/dL (0.7-1.3); GLUCOSE SERUM 126 mg/dL (74-106); POTASSIUM SERUM 3.4 mmol/L (3.5-5.1); SODIUM SERUM 143 mmol/L (136-145)
[2018-10-07 06:59] LABS: BASOPHIL % 0 % (0-2); RED CELL DISTRIBUTION WIDTH 16.9 % (11.5-14.5)
--- NOTE | 2018-10-07 07:10 | NUR ---
PHYSICAL THERAPY DAILY NOTES CO-SIGN All documentation done by the Worker'S Compensation Claims Examiner for 10/07/18 has been reviewed. I agree with the documentation. Reviewed/Co-Signed by: Bernie Sahu PT Documentation Done by:TALI APONTE PTA FOR 10/06/18
--- NOTE | 2018-10-07 07:25 | NUR ---
WBC-13.6 COMMUNICATED TO THE NEXT RN FOR FOLLOW UP.
[2018-10-07 07:37] VITALS: BP 128/55
--- NOTE | 2018-10-07 07:51 | NUR ---
REPORT RECEIVED AND PATIENT SEEN. OPENED EYES WITH HIS NAME AND NODED. JENNYFER AT THIS JOHN. RR-16 WITH OXIMIZER AT 5LPM IN USE. HOB AT 40 DEGREES. TF GLUCERNA AT 50/HR VIA FEEDING TUBE ONGOING. BED LOW AND LOCKED.
--- NOTE | 2018-10-07 12:59 | NUR ---
TUBE FEEDING AND TUBINGS CHANGED. NO RESIDUALS FOR 0800 AND 1200. FEEDING RATE INCREASED TO GOAL OF 65. HOB 50 DEGREES UP.
--- NOTE | 2018-10-07 14:29 | NUR ---
PT SITTING UP IN BED. NO ACUTE RESP DISTRESS NOTED. PROVIDED ORAL CARE. PT TOLERATED WELL. RESIDUALS CHECKED NO RESIDUAL VOLUME NOTED. TUBE FEEDING RUNNING AT GOAL OF 65 ML/HR ORDERED. WILL CONTINUE TO MONITOR. CALL LIGHT IN REACH. BED IN LOWEST POSITION.
[2018-10-07 15:11] VITALS: BP 128/55
--- NOTE | 2018-10-07 15:16 | NUR ---
SPOKE WITH DAUGHTER KRYSTEN AND INFORMED HER PT WILL BED TRANSFERRED TO [facility]. INFORMED HER WILL CALL HE AND UPDATE HER ON A TIME AND ROOM NUMBER.
--- NOTE | 2018-10-07 16:03 | NUR ---
FOR TRANSFER TO [facility]. REPORT GIVEN TO JULIA WILKERSON. [phone].
--- NOTE | 2018-10-07 16:11 | NUR ---
PHYSICAL THERAPY DAILY NOTES CO-SIGN All documentation done by the Aircraft Instrument Repairer for 10/07/18 has been reviewed. I agree with the documentation. Reviewed/Co-Signed by: Bernie Sahu PT Documentation Done by:TALI APONTE PTA
--- NOTE | 2018-10-07 18:31 | NUR ---
[facility] AT BEDSIDE. REPORT GIVEN TO TANA. PT TAKEN OFF THE FLOOR VIA GUERNEY. NO ACUTE RESP DISTRESS NOTED 2L NC. IV SALINE LOCKED TO RFA. NO REDNESS OR SWELLING NOTED. CABAN CATHETER SECURED TO THIGH. PEG TUBE CLAMPED. NO REDNESS OR SWELLING NOTED.
--- NOTE | 2018-10-07 18:44 | NUR ---
TRANSPORT HERE AND REPORT GIVEN TO TANA OBRIEN. ALL BELONGINGS IN A BAG WITH TRANSPORT. PT INR RESULTS NOT IN . PHARM ESTELA ORDERED BEFORE HE CAN ORDER COUMADIN. CALL PLACED TO JULIA KAPLAN AND NOTIFIED NEED FOR PT INR AND COUMADIN ONCE RESULTS ARE IN PER MD ORDER.
== END 2018-10-07 18:34 | DRG 177 ==
LOC: ED 13:50 → MU 16:29 → DU 16:29 → MU 17:19 → DU 17:47 → MU 09-30 16:05
PROVIDERS: Emergency Medicine; Internal Medicine; Internal Medicine Gastroenterology; ADMIT General Practice
PROC: 0DH63UZ Insertion of Feeding Device into Stomach, Percutaneous Approach (ICD-10-PCS; principal; 2018-10-04 10:00)
DX: J69.0 Pneumonitis due to inhalation of food and vomit (principal); N17.0 Acute kidney failure with tubular necrosis; J96.00 Acute respiratory failure, unspecified whether with hypoxia or hypercapnia; J44.1 Chronic obstructive pulmonary disease with (acute) exacerbation; D68.69 Other thrombophilia; B02.30 Zoster ocular disease, unspecified; E87.0 Hyperosmolality and hypernatremia; L89.622 Pressure ulcer of left heel, stage 2; L89.612 Pressure ulcer of right heel, stage 2; E11.65 Type 2 diabetes mellitus with hyperglycemia; E11.22 Type 2 diabetes mellitus with diabetic chronic kidney disease; E86.0 Dehydration; I12.9 Hypertensive chronic kidney disease with stage 1 through stage 4 chronic kidney disease, or unspecified chronic kidney disease; N18.9 Chronic kidney disease, unspecified; E83.42 Hypomagnesemia; E87.6 Hypokalemia; Z66 Do not resuscitate; Z86.11 Personal history of tuberculosis; Z95.2 Presence of prosthetic heart valve; Z68.29 Body mass index [BMI] 29.0-29.9, adult; Z87.891 Personal history of nicotine dependence; Z95.1 Presence of aortocoronary bypass graft; Z79.84 Long term (current) use of oral hypoglycemic drugs; Z95.810 Presence of automatic (implantable) cardiac defibrillator
CPT/HCPCS: 43235; 82962; 87804; 92526-GN; 92611-GN; 94150; 97110-GP; 97530-GP; J0132; J1200; J1610; J1815; J2185; J2250; J2270; J2310; J2543; J3010; J3430; J3475; J3480; J3490; J7030; J7042; J7050; J7613; J7620; J7626; J7644; J8597; Q0092